=== PATIENT | male | born 1960 | race Caucasian/White ===

== ENCOUNTER → 2016-08-25 | Outpatient (CLI) | payer OTHER ==
--- NOTE | 2016-08-25 14:09 | MR ---
EXAMINATION TYPE: MR hip RT wo con DATE OF EXAM: 08/25/2016 COMPARISON: NONE HISTORY: Right hip pain Standard multiplanar, multisequence MRI departmental protocol Multiplanar MultiSpin echo imaging of the right hip was performed. FINDINGS: Bone marrow signal is homogeneous without evidence for fracture, bone lesion or avascular necrosis. There is attenuation of the subarticular cartilage compatible with osteoarthritis. Labrum is intact. Tiny amount of physiologic fluid identified. No intramuscular hematoma or mass. No pelvic mass is identified. IMPRESSION: 1. Mild changes of osteoarthritis of the right hip.
== END | disposition home or self-care (01) ==
LOC: RADMRIMAIN 12:41
PROVIDERS: ATTEND Internal Medicine Hematology & Oncology
DX: M16.11 Unilateral primary osteoarthritis, right hip (principal)

== ENCOUNTER → 2017-01-31 | Outpatient (CLI) | payer OTHER ==
--- NOTE | 2017-01-31 12:23 | CONS ---
CONSULTATION DATE OF SERVICE: 01/31/2017 A 56-year-old gentleman has been evaluated in the sleep center for possible obstructive sleep apnea-hypopnea syndrome. HISTORY OF PRESENT ILLNESS/SLEEP WAKE EVALUATION: SLEEP SCHEDULE: The patient's usual sleep schedule start from 10 p.m. and then he has very loud snoring and then he wakes up around 3:00 am and cannot sleep any longer at that time. At that time he also has nocturia. FALLING ASLEEP: No problem with falling asleep at night. No TV in bedroom. DURING SLEEP: He sleeps on the side position. Occasionally according to his , has episodes of stopped breathing. DURING THE DAY/SLEEP WAKE EVALUATION: In the morning he wakes up tired. [place] Sleepiness Scale is 9. PAST MEDICAL HISTORY: Positive for coronary artery disease, hyperlipidemia, endocrine CA in right inguinal area with spreading to the chest, treated with chemotherapy with positive results and resolving of the tumor, right hip osteoarthritis. PAST SURGICAL HISTORY: Status post insertion in the right side of the chest for stent insertions to coronary arteries and biopsy of the tumor. MEDICATIONS: Clopidogrel, rivaroxaban, metoprolol, Temazepam, zolpidem, tramadol, simvastatin, some supplements, vitamin D and also QVAR. SOCIAL HISTORY: Positive history of smoking for about 5 years up to 2 packs a day about 10 pack years, quit in 1984. Alcohol consumption one beer per night. FAMILY HISTORY: Hypertension, diabetes. REVIEW OF SYSTEMS: Awakenings from sleep and the patient cannot fall asleep again. Snoring, witnessed episodes of stopped breathing, pain in right hip. PHYSICAL EXAM: gentleman without distress, BP 142/83, HR 79, RR 16, height 6 foot 0, weight 248.3, BMI 33.6. Neck is 17 and a half inches in circumference. Temperature 97.7, oxygen saturation room air 94%. Oropharynx moderately low position of soft palate. Big uvula. There is some restriction of the nasal breathing. Chest port on the left side of the chest, abdomen slightly obese. Neck Supple, no JVD. Thyroid is not palpable. LUNGS Clear to percussion and to auscultation. Good air exchange. No wheezing or rhonchi. HEART S1, S2 regular. No murmurs, gallops, or rubs. ABDOMEN : Obese. Soft and nontender. Bowel sounds are present. No organomegaly appreciated. EXTREMITIES No clubbing or cyanosis. CREDIT ASSESSMENT ANALYST Awake, alert, and oriented X3. Cranial nerves 2 to 7 intact. There is no fasciculation or atrophy. noted. No focal deficits observed. The patient walks with a cane because of pain in the right hip. IMPRESSION: 1. Snoring, witnessed episodes of stopped breathing during the sleep. The patient sleeps sometimes with open mouth, moderately low soft palate and big uvula. Obstructive sleep apnea-hypopnea syndrome. 2. Mild obesity BMI 33.6. 3. History of endocrine cancer in right inguinal area with the distribution to the chest, treated with chemotherapy, presently in remission. 4. Coronary artery disease. Status post heart attack, status post 4 stent insertions. 5. Hyperlipidemia. 6. Right hip osteoarthritis. 7. Status post insertion to the left side of the chest for chemotherapy. PLAN: 1. Polysomnography for evaluation of patient's breathing during sleep. 2. CPAP/BiPAP titration if sleep study confirms obstructive sleep apnea-hypopnea syndrome. 3. Preferable position during sleep on the side. 4. No driving if patient feels any sleepiness. Patient is aware of civil and criminal liability for unsafe driving. 5. I will see patient for follow up visit to explain results of testing and following plan. Thank you very much for this patient for consultation. Sincerely, Cortes Matthews MD, PhD, FAASM Diplomat of [employer] [facility] [place] MMODL / GERMAINN: [id number] /
== END ==
LOC: SLEEP 10:13
PROVIDERS: ATTEND Internal Medicine
DX: G47.33 Obstructive sleep apnea (adult) (pediatric) (principal); E66.9 Obesity, unspecified; I25.10 Atherosclerotic heart disease of native coronary artery without angina pectoris; E78.5 Hyperlipidemia, unspecified; Z16.11 Resistance to penicillins; Z68.33 Body mass index [BMI] 33.0-33.9, adult; Z87.891 Personal history of nicotine dependence; Z79.899 Other long term (current) drug therapy; Z79.84 Long term (current) use of oral hypoglycemic drugs
CPT/HCPCS: 99211

== ENCOUNTER → 2017-03-15 | Outpatient (CLI) | payer OTHER ==
--- NOTE | 2017-03-15 13:16 | CT ---
EXAMINATION TYPE: CT ChestAbdPelvis w con DATE OF EXAM: 03/15/2017 COMPARISON: PET/CT August 26, 2016 HISTORY: Malignant neuroendocrine tumor of Rt groin. Had excisional surgery December 2014 and complete d chemotherapy December 2015. CT DLP: 2246 mGycm. Automated Exposure Control for Dose Reduction was Utilized. CONTRAST: CT scan of the thorax, abdomen and pelvis is performed with oral and with IV Contrast, patient inject ed with 100 mL of Omnipaque 300. FINDINGS: LUNGS: The lungs are grossly clear, there is no concerning greater than 4 mm noncalcified parenchymal mass or nodule identified. There is no pleural effusion or pneumothorax seen. The tracheobronchia l tree is patent. MEDIASTINUM: There are no greater than 1 cm hilar or mediastinal lymph nodes. No pericardial effusi on is seen. There is severe coronary artery calcification which is noted marker for coronary artery disease. OTHER: There is stable right internal jugular Mediport catheter with tip in SVC. LIVER/GB: Stone filled gallbladder is redemonstrated. Liver is diffusely low dense consistent with fa tty infiltration PANCREAS: No significant abnormality is seen. SPLEEN: No significant abnormality is seen. ADRENALS: No significant abnormality is seen. KIDNEYS: No significant abnormality is seen. BOWEL: Normal-appearing appendix from cecum in the right lower quadrant is incidentally seen.. GENITAL ORGANS: Prostate gland is mildly enlarged bulging on bladder base, underlying BPH is suspecte d, correlate clinically. LYMPH NODES: There is new 3.8 x 2.9 cm oval well-circumscribed lesion in the right pelvis with Hounsf ield units averaging or 50.. OSSEOUS STRUCTURES: Spine is straightened. Mild multilevel anterior spurring is seen. OTHER: There are surgical clips and scar in the right groin redemonstrated. Just superior to this wit hin the right pelvis there is irregular soft tissue near the iliac vessels on axial image 115. IMPRESSION: There is suspected neoplastic recurrence with lower right pelvic mass or groin adenopathy now identified and new more irregular soft tissue seen anterior to this at rectus sheath level.
== END | disposition home or self-care (01) ==
LOC: RADCTMAIN 10:20
PROVIDERS: ATTEND Internal Medicine Hematology & Oncology
DX: C7A.8 Other malignant neuroendocrine tumors (principal); M79.89 Other specified soft tissue disorders
CPT/HCPCS: 71260; 74177; Q9967

== ENCOUNTER 2017-03-29 07:52 | Day surgery (SDC) | payer OTHER ==
--- NOTE | 2017-03-29 11:12 | US ---
ULTRASOUND GUIDED FNA RIGHT GROIN MASS BIOPSY: CLINICAL HISTORY: Right groin mass FINDINGS: The procedure was explained to the patient. The risks, complications, benefits and alternatives were discussed and any questions were answered. Informed consent was obtained. Patient was placed supin e on the ultrasound table and prepped and draped in the usual sterile fashion. Utilizing a 25 gauge needle, three passes were made into the right groin mass. Patient was stable throughout the procedure. Pathology is pending. All elements of maximal barrier and sterile technique were utilized. IMPRESSION: 1. Successful ultrasound guided FNA right groin mass biopsy.
[2017-03-29 16:30] VITALS: BP 134/71; PULSE 96; RESP 20; TEMP 97.9
== END 2017-03-29 10:30 | disposition home or self-care (01) ==
LOC: RADPROMAIN 07:52
PROVIDERS: ATTEND Internal Medicine Hematology & Oncology
DX: C7A.1 Malignant poorly differentiated neuroendocrine tumors (principal)
CPT/HCPCS: 10022; 76942; 88173; 88305; 88341; 88342

== ENCOUNTER → 2017-07-17 | Outpatient (CLI) | payer OTHER ==
--- NOTE | 2017-07-17 14:00 | CT ---
EXAMINATION TYPE: CT abdomen pelvis w con DATE OF EXAM: 07/17/2017 COMPARISON: CT chest abdomen and pelvis March 15, 2017. PET CT August 26, 2016 HISTORY: Malignant neuroendocrine tumor right groin. On chemotherapy currently. CT DLP: 2034.8 mGycm, Automated Exposure Control for Dose Reduction was Utilized. CONTRAST: CT scan of the abdomen and pelvis is performed with oral and with IV Contrast, patient injected with 100 mL of Isovue 300. FINDINGS: LUNG BASES: No significant abnormality is appreciated. LIVER/GB: Visualized liver remains heterogeneously hypodense suggesting fatty infiltration. There is stone filled contracted gallbladder redemonstrated without surrounding inflammatory change. PANCREAS: No significant abnormality is seen. SPLEEN: No significant abnormality is seen. ADRENALS: No significant abnormality is seen. KIDNEYS: There is accessory right renal artery redemonstrated. BOWEL: Oral contrast reaches level of cecum. There is no suspicious small or large bowel dilatation. PROSTATE/SEMINAL VESICLES: No gross abnormality seen. LYMPH NODES: There is interval improvement in right external iliac chain mass or lymph node measuring 1.8 x 1.1 cm axial image 76 is 3.9 x 2.9 cm prior study. There is stable irregular soft tissue at le prabhu of right groin vessels anterior and lateral to this. No new greater than 1cm abdominal or pelvic lymph nodes are appreciated. OSSEOUS STRUCTURES: Mild multilevel spurring in the visualized spine is seen. Moderate joint space lo ss in both hips is present. OTHER: There are surgical clips in the right groin region redemonstrated. There is redemonstration of subcentimeter lymph node medial and inferior to clips axial image 85 unchanged from prior study. IMPRESSION: Positive response to treatment with diminished size in the right external iliac chain mas s or adenopathy. No new suspicious mass or adenopathy is seen.
== END | disposition home or self-care (01) ==
LOC: RADCTMAIN 10:48
PROVIDERS: ATTEND Internal Medicine Hematology & Oncology
DX: C7A.8 Other malignant neuroendocrine tumors (principal)
CPT/HCPCS: 82565; 84520; 74177; 36415; Q9967

== ENCOUNTER → 2017-08-29 | Outpatient (CLI) | payer OTHER ==
[2017-08-29 12:43] LABS: Blood Urea Nitrogen 19 mg/dL (9-20)
--- NOTE | 2017-08-29 17:14 | CT ---
EXAMINATION TYPE: CT abdomen pelvis w con DATE OF EXAM: 08/29/2017 COMPARISON: NONE HISTORY: Malignant neuro endo tumor CT DLP: 2017.1 mGycm Automated exposure control for dose reduction was used. TECHNIQUE: Helical acquisition of images was performed from the lung bases through the pelvis. CONTRAST: Performed with Oral Contrast and with IV Contrast, patient injected with 100 mL of Isovue 300. FINDINGS: LUNG BASES: Punctate 1 to 2 mm right basilar pulmonary nodule on series 6 image 23 is similar to the prior. Otherwise lung bases are unremarkable. LIVER/GB: Benign granuloma is seen of the hepatic parenchyma adjacent to a focal area of hypoattenuat ion that may represent more focal fatty infiltration. There is background mild hepatic steatosis as s een on the prior exam. No new hepatic lesions are seen. Contracted gallbladder contains numerous gall stones with no pericholecystic fat stranding. PANCREAS: No significant abnormality is seen. SPLEEN: No significant abnormality is seen. Splenomegaly. ADRENALS: No nodularity or thickening. KIDNEYS: Accessory renal artery is again noted. Nonspecific perinephric fat stranding is mild. No hyd ronephrosis. Kidneys enhance symmetrically. FREE AIR: No free air is visualized. ADENOPATHY: Again there is soft tissue density seen along the right inguinal canal and superficial in guinal region with surgical clips in the superficial inguinal region. Soft tissue density abuts the e xternal iliac artery and vein and appears similar in thickness to the prior exam of 07/17/2017. Howeve r the right external chain iliac adenopathy has decreased in size on series 5 image 80 measuring appr oximately 0.6 x 1.7 cm and previously measuring 1.1 x 1.8 cm. No new adenopathy is seen within the ab domen or pelvis. No greater than 1 cm short axis lymph nodes within the abdomen or pelvis. REPRODUCTIVE ORGANS: No significant abnormality is seen URINARY BLADDER: No significant abnormality is seen. OSSEOUS STRUCTURES: Mild multilevel degenerative change of the spine is again seen in addition to mo derate femoral acetabular arthropathy. BOWEL: Bowel is nondilated. Appendix is air-filled and within normal limits. IMPRESSION: CONTINUED RESPONSE TO TREATMENT WITH CONTINUED DECREASE IN SIZE OF THE RIGHT EXTERNAL ILIAC LYMPH NOD E PREVIOUSLY MEASURING 1.1 X 1.8 CM AND NOW MEASURING 0.6 X 1.7 CM. PERSISTENT SOFT TISSUE DENSITY AT THE POSTOPERATIVE SITE IN THE INGUINAL CANAL AND SUPERFICIAL INGUINAL REGION IS SIMILAR TO THE PRIOR AND COULD REPRESENT FIBROSIS. NO NEW EVIDENCE OF INTRA-ABDOMINAL OR PELVIC METASTASIS.
== END | disposition home or self-care (01) ==
LOC: RADCTMAIN 12:05
PROVIDERS: ATTEND Internal Medicine Hematology & Oncology
DX: C7A.8 Other malignant neuroendocrine tumors (principal); Z98.890 Other specified postprocedural states
CPT/HCPCS: 82565; 84520; 74177; 36415; Q9967

== ENCOUNTER 2017-09-17 06:24 | Day surgery (SDC) | payer OTHER ==
[2017-09-12 12:11] VITALS: BMI 33.9
[~2017-09-17 06:24] MED LIST: ALPRAZolam 0.25 MG TAB PO PRN; ALPRAZolam 0.5 MG TAB PO PRN; ASPIRIN 325 MG TAB PO STA; ATORVASTATIN 80 MG TAB PO STA; NITROGLYCERIN SL TABS 0.4 MG TAB SUBLINGUAL PRN; SODIUM CHLORIDE 0.9% 1,000 ML in EMPTY BAG 1 BAG IV ONE
[2017-09-17 07:19] VITALS: PULSE 83; RESP 20
[2017-09-17] MEDS ORDERED: VERAPAMIL 2.5 MG/ML 2 ML AMP ONE (07:21)
[2017-09-17 07:25] LABS: Anisocytosis Slight; Basophils % (A) 0 %; Eosinophils # (A) 0.1 k/uL (0-0.7); Eosinophils % (A) 2 %; HCT 37.9 % (39.0-53.0); HGB 12.6 gm/dL (13.0-17.5); Lymphocytes # (A) 0.6 k/uL (1.0-4.8); Lymphocytes % (A) 13 %; MCH 33.2 pg (25.0-35.0); MCHC 33.3 g/dL (31.0-37.0); MCV 99.9 fL (80.0-100.0); Macrocytosis Slight; Mean Platelet Volume 6.6; Monocytes # (A) 0.5 k/uL (0-1.0); Monocytes % (A) 11 %; Neutrophils # (A) 3.3 k/uL (1.3-7.7); Neutrophils % (A) 71 %; Platelet Count 392 k/uL (150-450); RBC 3.79 m/uL (4.30-5.90); RDW 16.6 % (11.5-15.5); WBC 4.7 k/uL (3.8-10.6)
[2017-09-17] MEDS ORDERED: MIDAZOLAM 2 MG/2 ML VIAL ONE (07:36)
[2017-09-17] MEDS: MIDAZOLAM 2 MG/2 ML VIAL IVP ONE ×2 (07:50→08:16)
[2017-09-17] MEDS ORDERED: LIDOCAINE 2% SYG (PF) 100 MG/5 ML MISCELLANE ONE (07:55)
[2017-09-17] MEDS: VERAPAMIL SYRINGE (5 MG/10 ML) INTRAARTER ONE ×2 (07:57→08:30)
[2017-09-17] MEDS ORDERED: HEPARIN SODIUM 1,000 UN/ML (10ML VL) ONE (07:57)
[2017-09-17] MEDS ORDERED: HEPARIN SODIUM 1,000 UN/ML (10ML VL) IV ONE (07:58)
[2017-09-17] MEDS ORDERED: IV FLUID CONTINUATION 950 ML IV ONE (08:01)
[2017-09-17] MEDS ORDERED: ADENOSINE 90 MG in SODIUM CHLORIDE 0.9% 60 ML IVP ONE (08:26)
[2017-09-17] MEDS ORDERED: IOPAMIDOL-370 125ML BTL INJ ONE (08:30)
[2017-09-17] MEDS ORDERED: RX INFO: IV CONTRAST WAS GIVEN 1 EACH MISC MISCELLANE PRN (08:44)
[2017-09-17] MEDS ORDERED: SODIUM CHLORIDE 0.9% 1,000 ML IV SCH (08:45)
[2017-09-17 09:11] LABS: Anion Gap 11 mmol/L; Blood Urea Nitrogen 17 mg/dL (9-20); Calcium 8.5 mg/dL (8.4-10.2); Carbon Dioxide 21 mmol/L (22-30); Chloride 105 mmol/L (98-107); Glucose 92 mg/dL (74-99); Potassium 3.8 mmol/L (3.5-5.1); Sodium 137 mmol/L (137-145)
--- NOTE | 2017-09-17 10:23 | CC ---
CARDIAC CATHETERIZATION REPORT DATE OF SERVICE: 09/17/2017 PERFORMING PHYSICIAN: Brannon Villalta MD, Dietary Director. PROCEDURE PERFORMED: 1. Selective right and left coronary angiogram. 2. Left heart catheterization. 3. Fractional flow reserve, FFR of the LAD. INDICATION: This is a pleasant 56-year-old gentleman who is known to have coronary artery disease and prior coronary artery stenting of the LAD as well as hypertension and dyslipidemia and also does have neuroendocrine carcinoma, was experiencing intermittent episodes of chest discomfort concerning for angina. Because of that, heart catheterization was recommended. APPROACH: Right radial artery. COMPLICATION: None. LEVEL OF SEDATION: Moderate with sedation length of 58 minutes. PROCEDURE DESCRIPTION: After obtaining an informed consent, the patient was brought to the cardiac labor law professor. The right radial artery was cannulated using micropuncture technique, the micropuncture wire passed easily, then I put a 6-Niuean sheath in the right radial artery. Subsequently, I gave the patient 10,000 units of heparin IV and 2 mg of verapamil IA. Selective right and left coronary angiogram was performed using JR4 and JL3.5 catheters. Left heart catheterization was performed using the JL4 catheter which flipped into the LV, then I did pullback across aortic valve. After that, I did an FFR of the LAD. Please see a separate paragraph for that. SELECTIVE CORONARY ANGIOGRAM: 1. The RCA is a large caliber vessel and it is a dominant vessel. The RCA is angiographically normal. It distally bifurcates into PDA and PLV branches both are angiographically normal. 2. The left main is a large caliber vessel. It bifurcates into left circumflex, ramus intermedius, and left anterior descending artery. 3. The left circumflex is a large caliber vessel. It is a nondominant vessel. The ostial circumflex is diseased in the range of 50%. The mid and distal circumflex are angiographically normal. 4. The ramus intermedius is a large caliber vessel and seems to be angiographically normal. 5. The ostial LAD right after the bifurcation from the left main has a lesion, appeared to be in the range of 60% to 70%. we did an FFR on it and IFR came in to be 0.60, which is ischemic. The mid LAD is stented and the stent is patent. The distal LAD appears to be angiographically normal. HEMODYNAMICS: The left ventricular end-diastolic pressure was 14 mmHg and no gradient was identified across the aortic valve. IFR of the LAD anticoagulation was initiated using heparin and the patient was given 10,000 units of heparin IV. Subsequently, I did after zeroing the Doppler wire and equalizing between the Doppler wire and the guiding catheter which was JL3.5 guiding catheter, we did an IFR without IV adenosine infusion and the IFR came in to be 0.60 which is ischemic. CONCLUSION: 1. Normal right coronary artery which is a large and dominant vessel. 2. Mild disease involving the left main coronary artery. 3. Intermediate disease involving the ostial left circumflex. 4. Normal ramus intermedius coronary artery. 5. Severe disease involving the ostial left anterior descending artery with patent stent in the mid left anterior descending artery. POSTPROCEDURE MANAGEMENT: 1. I will discuss with the patient and his family the need for 1 single-vessel CHANDLER to LAD. Unless the patient's prognosis is poor, in terms of the endocrine tumor, I will consider doing a PCI of the LAD. I will discuss that with his oncologist as well as with his primary care physician and as well as with the patient and the patient's family. MMODL / IJN: [id number] /
--- NOTE | 2017-09-17 10:38 | LTR ---
DATE OF SERVICE: September 17, [address] Carl: Mr. Warren Sargent underwent heart catheterization and that revealed severe disease involving the ostial LAD. I am going to discuss with the patient the option between single-vessel bypass with CHANDLER to LAD versus percutaneous coronary intervention. I want to thank you for allowing me to participate in his care and please do not hesitate to call if you have any questions or concern. Sincerely, HAO / GERMAINN: [id number] /
[2017-09-17 17:10] VITALS: BP 114/77
== END 2017-09-17 14:20 | disposition home or self-care (01) ==
LOC: CATHCVL 06:24
PROVIDERS: ATTEND Internal Medicine Interventional Cardiology
DX: I25.110 Atherosclerotic heart disease of native coronary artery with unstable angina pectoris (principal); I10 Essential (primary) hypertension; E78.5 Hyperlipidemia, unspecified; E78.00 Pure hypercholesterolemia, unspecified; C7A.8 Other malignant neuroendocrine tumors; Z79.01 Long term (current) use of anticoagulants; Z79.899 Other long term (current) drug therapy; Z95.5 Presence of coronary angioplasty implant and graft; Z82.49 Family history of ischemic heart disease and other diseases of the circulatory system
CPT/HCPCS: 93571; 93458; 80048; 85025; C1887; C1894; J2250; J2001; J1644; Q9967

== ENCOUNTER 2017-09-28 10:18 | Day surgery (SDC) | payer OTHER ==
[2017-09-24 15:40] VITALS: BMI 33.9
[2017-09-28 11:05] LABS: Anion Gap 13 mmol/L; Blood Urea Nitrogen 19 mg/dL (9-20); Calcium 8.9 mg/dL (8.4-10.2); Carbon Dioxide 20 mmol/L (22-30); Chloride 107 mmol/L (98-107); Glucose 83 mg/dL (74-99); Potassium 4.1 mmol/L (3.5-5.1); Sodium 140 mmol/L (137-145)
[2017-09-28 11:27] LABS: Basophils % (A) 1 %; Eosinophils # (A) 0.1 k/uL (0-0.7); Eosinophils % (A) 3 %; HCT 36.1 % (39.0-53.0); HGB 12.4 gm/dL (13.0-17.5); Lymphocytes # (A) 0.5 k/uL (1.0-4.8); Lymphocytes % (A) 15 %; MCH 33.2 pg (25.0-35.0); MCHC 34.5 g/dL (31.0-37.0); MCV 96.3 fL (80.0-100.0); Mean Platelet Volume 6.6; Monocytes # (A) 0.4 k/uL (0-1.0); Monocytes % (A) 12 %; Neutrophils # (A) 2.2 k/uL (1.3-7.7); Neutrophils % (A) 68 %; Platelet Count 317 k/uL (150-450); RBC 3.75 m/uL (4.30-5.90); RDW 14.6 % (11.5-15.5); WBC 3.3 k/uL (3.8-10.6)
[2017-09-28] MEDS ORDERED: MIDAZOLAM 2 MG/2 ML VIAL IV ONE (11:30)
[2017-09-28] MEDS: VERAPAMIL SYRINGE (5 MG/10 ML) INTRAARTER ONE ×2 (11:33→11:57)
[2017-09-28] MEDS ORDERED: LIDOCAINE 1% (PF) 10MG/ML VIAL SQ ONE (11:33)
[2017-09-28] MEDS ORDERED: BIVALIRUDIN 250 MG in SODIUM CHLORIDE 0.9% 50 ML IV ONE (11:36)
[2017-09-28] MEDS ORDERED: BIVALIRUDIN BOLUS 250 MG/50 ML IV ONE (11:36)
[2017-09-28] MEDS ORDERED: NITROGLYCERIN 1000MCG/10ML SYRINGE INTRACORON ONE (11:43)
[2017-09-28] MEDS ORDERED: IOPAMIDOL-370 125ML BTL INJ ONE (11:56)
[2017-09-28] MEDS ORDERED: CLOPIDOGREL 75 MG TAB PO ONE (11:56)
[2017-09-28] MEDS ORDERED: ZOLPIDEM 5 MG TAB PO PRN (12:02)
[2017-09-28] MEDS ORDERED: NITROGLYCERIN SL TABS 0.4 MG TAB SUBLINGUAL PRN (12:02)
[2017-09-28] MEDS ORDERED: MAG HYDROX/AL HYDROX/SIMETH 30 ML CUP PO PRN (12:02)
[2017-09-28] MEDS ORDERED: RX INFO: IV CONTRAST WAS GIVEN 1 EACH MISC MISCELLANE PRN (12:02)
[2017-09-28] MEDS ORDERED: ATROPINE SULFATE 0.1 MG/ML 10ML SYRINGE IV PRN (12:02)
[2017-09-28] MEDS ORDERED: SODIUM CHLORIDE 0.9% 1,000 ML IV SCH (12:15)
--- NOTE | 2017-09-28 13:41 | PTCA ---
PERCUTANEOUSTRANS CORORONARY ANGIOGRAPHY PERCUTANEOUS CORONARY INTERVENTION: DATE OF SERVICE: 09/28/2017 PERFORMING PHYSICIAN: Brannon Villalta MD, activity manager. PROCEDURE PERFORMED: Successful stenting of the ostial/proximal LAD using a 3.0 x 8 mm Xience SUMIT with good angiographic results. INDICATION: This is a pleasant 56-year-old gentleman with known history of coronary artery disease and prior stenting of the proximal LAD, was experiencing chest discomfort and underwent heart catheterization recently and that showed severe disease involving ostial/proximal portion. The patient is not a candidate to have open heart surgery with his comorbidities including cancer. Because of that, PCI was advised. APPROACH: Right radial artery. COMPLICATION: None. LEVEL OF SEDATION: Moderate with sedation length of 26 minutes. PROCEDURE DESCRIPTION: After obtaining an informed consent, the patient was brought to the cardiac solar lab technician. The right radial artery was cannulated using micropuncture technique, the micropuncture wire passed easily then I placed a 6-Irish sheath in the right radial artery. After that I gave the patient 2 mg of verapamil IA. Subsequently anticoagulation was initiated using Angiomax and the patient was given the bolus and drip per protocol. I did engage the left main using JL3.5 guide. A whisper wire was used to wire the LAD and the run-through wire was used to wire the ramus intermedius. After that I did successful stenting, which was direct stent on the ostial proximal LAD using 3.0 x 8 mm Xience SUMIT where the stent was positioned under fluoroscopy guidance and deployed under 14 atmospheres for 20 seconds with the following angiogram showed good angiographic results without perforation, without dissection, with AARON-3 flow and without any pinch on the ramus intermedius. CONCLUSION: Successful stenting of the ostial/proximal left anterior descending artery using 3.0 x 8 mm Xience SUMIT with good angiographic results. POSTPROCEDURE MANAGEMENT: 1. Dual antiplatelet therapy. 2. Risk factors modifications. 3. Follow up with the patient. MMODL / IJN: [id number] /
--- NOTE | 2017-09-28 13:56 | LTR ---
DATE OF SERVICE: September 28, 2017 RE: Warren Sargent Dear Dr. Carl; Mr. Warren Sargent underwent successful stenting of the ostial/proximal LAD using 3.0 x 8 mm Xience SUMIT with good angiographic results. I want to thank you for allowing me to participate in his care and please do not hesitate to call if you have any question or concern. Sincerely, MD HAO Chung / RALPH: [id number] /
[2017-09-28] MEDS: BUDESONIDE 0.5 MG/2 ML NEBU INHALATION SCH (20:14)
[2017-09-28] MEDS ORDERED: TAMSULOSIN 0.4 MG CAP.ER.24H PO SCH (21:00)
[2017-09-29 08:09] VITALS: BP 120/77; RESP 16; TEMP 96.7
[2017-09-29] MEDS: BUDESONIDE 0.5 MG/2 ML NEBU INHALATION SCH (08:47)
[2017-09-29 08:56] VITALS: PULSE 68
[2017-09-29] MEDS ORDERED: LOSARTAN 25 MG TAB PO SCH (09:00)
[2017-09-29] MEDS ORDERED: CLOPIDOGREL 75 MG TAB PO SCH (09:00)
[2017-09-29] MEDS ORDERED: ISOSORBIDE MONONITRATE ER 30 MG TAB.ER.24H PO SCH (09:00)
[2017-09-29] MEDS ORDERED: ASPIRIN 325 MG TAB PO SCH (09:00)
[2017-09-29] MEDS ORDERED: CHOLECALCIFEROL 1,000 UNIT TAB PO SCH (09:00)
[2017-09-29] MEDS ORDERED: METOPROLOL SUCCINATE (ER) 25 MG TAB.ER.24H PO SCH (09:00)
--- NOTE | 2017-09-29 09:14 | P.DS ---
Providers Date of admission: September 282017 Attending physician: Brannon Villalta Consults: 09/28/17 12:02 Consult Physician Routine Consulting Provider: [facility] Consult Reason/Comments: Post Interventional patient Do you want consulting provider notified?: Already Contacted Primary care physician: Stated None Hospital Course: This is a pleasant 56-year-old gentleman who was admitted to the hospital yesterday and underwent successful stenting of the ostial/proximal LAD with a good angiographic results and without any complication from the procedure was performed from the right arm. He denies having any chest pain or discomfort or shortness of breath or dizziness or lightheadedness. He is going to be discharged home on dual antiplatelet therapy along with Xarelto which I am going to lower the dose to 50 mg by mouth daily. Plan - Discharge Summary Discharge Rx Participant: Yes New Discharge Prescriptions: New Aspirin 81 mg PO DAILY #90 tab Atorvastatin Calcium [Lipitor] 40 mg PO DAILY #90 tablet Clopidogrel [Plavix] 75 mg PO DAILY #90 tab Continue Metoprolol Succinate (ER) [Toprol XL] 25 mg PO QAM Cholecalciferol [Vitamin D3] 1,000 unit PO QAM Telmisartan [Micardis] 10 mg PO QAM Tamsulosin HCl [Flomax] 0.4 mg PO HS Fluticasone Propionate [Flovent Hfa 110mcg] 2 puff INHALATION BID Albuterol Sulfate [Proair Hfa] 1 - 2 puff INHALATION Q6HR PRN PRN Reason: Shortness Of Breath Isosorbide Mononitrate [Isosorbide Mononitrate ER] 30 mg PO DAILY Changed Rivaroxaban [Xarelto] 15 mg PO HS #0 Discharge Medication List Cholecalciferol [Vitamin D3] 1,000 unit PO QAM 03/22/17 [History] Metoprolol Succinate (ER) [Toprol XL] 25 mg PO QAM 03/22/17 [History] Tamsulosin HCl [Flomax] 0.4 mg PO HS 09/12/17 [History] Telmisartan [Micardis] 10 mg PO QAM 09/12/17 [History] Albuterol Sulfate [Proair Hfa] 1 - 2 puff INHALATION Q6HR PRN 09/28/17 [History] Fluticasone Propionate [Flovent Hfa 110mcg] 2 puff INHALATION BID 09/28/17 [ History] Isosorbide Mononitrate [Isosorbide Mononitrate ER] 30 mg PO DAILY 09/28/17 [ History] Aspirin 81 mg PO DAILY #90 tab 09/29/17 [Rx] Atorvastatin Calcium [Lipitor] 40 mg PO DAILY #90 tablet 09/29/17 [Rx] Clopidogrel [Plavix] 75 mg PO DAILY #90 tab 09/29/17 [Rx] Rivaroxaban [Xarelto] 15 mg PO HS #0 09/29/17 [Rx] Follow up Appointment(s)/Referral(s): Brannon Villalta MD [STAFF PHYSICIAN] - 1 Week
== END 2017-09-29 11:56 | disposition home or self-care (01) ==
LOC: CATHCVL 10:18 → 6SEL 12:55 → CATHCVL 09-29 11:56
PROVIDERS: ATTEND Internal Medicine Interventional Cardiology
DX: I25.10 Atherosclerotic heart disease of native coronary artery without angina pectoris (principal); I10 Essential (primary) hypertension; E78.5 Hyperlipidemia, unspecified; C7A.8 Other malignant neuroendocrine tumors; Z95.5 Presence of coronary angioplasty implant and graft; Z82.49 Family history of ischemic heart disease and other diseases of the circulatory system; F17.210 Nicotine dependence, cigarettes, uncomplicated; Z79.01 Long term (current) use of anticoagulants; Z79.51 Long term (current) use of inhaled steroids; Z79.899 Other long term (current) drug therapy
CPT/HCPCS: 94640 ×2; 94760; 80048; 82565; 85025; C9600; C1769 ×2; C1887; C1874; C1894; J2250; J0583; J2001; Q9967

== ENCOUNTER → 2017-10-27 | Outpatient (CLI) | payer OTHER ==
--- NOTE | 2017-10-27 10:13 | MR ---
EXAMINATION TYPE: MR brain wo/w con DATE OF EXAM: 10/27/2017 10:01 AM COMPARISON: NONE HISTORY: Memory loss. TECHNIQUE: Multiplanar, multiecho imaging of the brain was obtained with and without intravenous adm inistration of 11.5 mL intravenous Gadavist. FINDINGS: Midline structures are unremarkable. There is a normal craniocervical junction. Echoplanar diffusion imaging is unremarkable. There are normal vascular flow voids. The orbits are unremarkable. There is no evidence of a CP angle mass lesion. There are numerous small FLAIR lesions in the subcortical and deep white matter tracts of both cerebr al hemispheres. The largest is on the right measures 4.4 mm. There is no mass effect, midline shift o r intracranial blood. Following intravenous administration of gadolinium, I do not see evidence of abnormal enhancement. IMPRESSION: 1. NO ACUTE INTRACRANIAL ABNORMALITY AND NO EVIDENCE OF METASTATIC DISEASE AT THIS TIME. 2. MULTIPLE, SMALL FLAIR LESIONS THROUGHOUT BOTH CEREBRAL HEMISPHERES. A DIFFERENTIAL DIAGNOSIS INCLU SUMIT SMALL VESSEL DISEASE, DEMYELINATION, HYPERTENSION, MIGRAINE HEADACHES AND LYME'S DISEASE.
== END | disposition home or self-care (01) ==
LOC: RADMRIMAIN 09:09
PROVIDERS: ATTEND Radiology Radiation Oncology
DX: C7A.8 Other malignant neuroendocrine tumors (principal)
CPT/HCPCS: 70553; A9581

== ENCOUNTER → 2017-10-29 | Outpatient (CLI) | payer OTHER ==
--- NOTE | 2017-10-29 14:44 | CT ---
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 CT DLP: 1707 mGycm Automated exposure control for dose reduction was used. TECHNIQUE: Helical acquisition of images was performed from the lung bases through the pelvis. CONTRAST: Performed with Oral Contrast and with IV Contrast, patient injected with 100 ml mL of Isovue 300. FINDINGS: LUNG BASES: No significant abnormality is appreciated. LIVER/GB: Again there is a punctate calcification within the caudate lobe of the liver likely relatin g to a granuloma with adjacent to a focal area of hypoattenuation that may represent more focal fatty infiltration. This could alternatively represent very less likely treated metastasis. No arterial en hancing focus is seen to suggest new metastasis. There is again background mild hepatic steatosis. Th e gallbladder contains multiple layering gallstones. PANCREAS: No significant abnormality is seen. SPLEEN: No significant abnormality is seen. No splenomegaly. ADRENALS: Adrenal glands are symmetric without focal nodule. KIDNEYS: Kidneys enhance symmetrically without hydronephrosis or focal renal lesion. FREE AIR: No free air is visualized. ADENOPATHY: No greater than 1 cm short axis lymph node within the abdomen or pelvis. Postsurgical ch anges and scarring within the right superficial inguinal region with soft tissue density along the ri ght inguinal canal abutting the external iliac artery and vein is unchanged in comparison the prior l ikely representing fibrosis. Right external iliac chain lymph node is no longer enlarged (also not en larged on the prior)r again measuring approximately 6 mm in short axis on series 3 image 79. REPRODUCTIVE ORGANS: Prostate gland is mildly enlarged measuring 4.9 cm in transverse dimension. URINARY BLADDER: Urinary bladder is incompletely distended and therefore incompletely evaluated. Chr onic right lateral anterior urinary bladder wall thickening may relate to posttreatment change measur ing up to 5 mm. This may also partially relate to incomplete distention. OSSEOUS STRUCTURES: There is minimal multilevel degenerative change of the spine and left femoral st able sclerotic lesion on series 3 image 89, likely related to benign bone island. BOWEL: No large or small bowel dilatation. Contrast has not extended to the level of the colon there fore somewhat limiting evaluation. Appendix is air-filled and without periappendiceal fat stranding. OTHER: Mild calcific atheromatous changes are seen of the abdominal aorta and its branches. IMPRESSION: STABLE RIGHT INGUINAL CANAL SOFT TISSUE DENSITY, LIKELY RELATED TO TREATED DISEASE/FIBROSIS. NO NEW A DENOPATHY OR EVIDENCE OF METASTASIS WITHIN THE ABDOMEN OR PELVIS.
== END | disposition home or self-care (01) ==
LOC: RADCTMAIN 11:34
PROVIDERS: ATTEND Internal Medicine Hematology & Oncology
DX: R19.09 Other intra-abdominal and pelvic swelling, mass and lump (principal); C7A.8 Other malignant neuroendocrine tumors
CPT/HCPCS: 74177; Q9967

== ENCOUNTER → 2018-01-22 | Outpatient (CLI) | payer OTHER ==
--- NOTE | 2018-01-22 14:29 | CT ---
EXAMINATION TYPE: CT abdomen pelvis w con DATE OF EXAM: 01/22/2018 COMPARISON: October 29, 2017 HISTORY: Patient complains of known endocrine ca with right groin mass. CT DLP: 1611.1 mGycm CONTRAST: CT scan of the abdomen and pelvis is performed with Oral Contrast and with IV Contrast, patient injec carlos with 100 mL of Isovue 300. FINDINGS: LUNG BASES-: No visible nodule. No infiltrate. LIVER/GB: Calcified gallstones noted. Mild fatty liver identified. No space occupying hepatic lesi on. Biliary tree is of normal caliber. PANCREAS: No inflammation. No distinct mass. SPLEEN: No splenic enlargement. No lesion seen. ADRENALS: No nodule. No thickening. KIDNEYS/BLADDER: No hydronephrosis. No nephrolithiasis. No distinct renal mass. Urinary bladder g rossly unremarkable. BOWEL: Normal appendix. Normal bowel caliber. No inflammation. GENITAL ORGANS: No gross abnormality. LYMPH NODES: Right inguinal dissection. No greater than 1cm abdominal or pelvic lymph nodes are appre ciated. AORTA: No significant abnormality. OSSEOUS STRUCTURES: No significant abnormality is seen. OTHER: No significant additional abnormality is seen. IMPRESSION: 1. Fatty liver. 2. Cholelithiasis. 3. No evidence for adenopathy. Right inguinal dissection.
== END | disposition home or self-care (01) ==
LOC: RADCTMAIN 10:57
PROVIDERS: ATTEND Internal Medicine Hematology & Oncology
DX: K80.20 Calculus of gallbladder without cholecystitis without obstruction (principal); K76.0 Fatty (change of) liver, not elsewhere classified; C7A.8 Other malignant neuroendocrine tumors
CPT/HCPCS: 74177; Q9967

== ENCOUNTER → 2018-03-02 | Outpatient (CLI) | payer OTHER ==
--- NOTE | 2018-03-03 15:07 | PE ---
Nuclear medicine PET/CT HISTORY: Neuroendocrine tumor, subsequent Patient received 10.3 mCi F-18 FDG intravenously in delayed scanning performed from the skull base to the mid thighs. Localization and attenuation correction CT scan was performed. Correlation to prior CT abdomen pelvis 01/22/2018, prior nuclear medicine PET/CT 08/26/2016 Neck and chest: There is no evident cervical or supraclavicular adenopathy. No mediastinal, axillary, or hilar adenopathy, left hilar calcifications are stable no suspicious hypermetabolic uptake. No ev ident lung mass. Coronary artery calcifications are dense. Port-A-Cath is present in the right pector al region, catheter courses into the cavoatrial junction level. Abdomen pelvis: Calcifications stable within the liver. No retroperitoneal adenopathy or ascites, aor ta shows normal caliber. Dependent hyperdensity within the gallbladder compatible with stones as on p rior exam. No suspicious hypermetabolic uptake. No pelvic adenopathy. Postop changes are noted to the right groin. No free fluid. Osseous structures are stable. IMPRESSION: Stable exam. Recurrence is not evident. Additional findings above.
== END | disposition home or self-care (01) ==
LOC: RADPETMAIN 07:44
PROVIDERS: ATTEND Internal Medicine Hematology & Oncology
DX: C7A.8 Other malignant neuroendocrine tumors (principal)
CPT/HCPCS: 78815; A9552

== ENCOUNTER 2018-08-09 10:05 | Day surgery (SDC) | payer MEDICARE, OTHER ==
[2018-08-07 08:31] VITALS: BMI 33.9
[2018-08-09 10:28] VITALS: RESP 18; TEMP 98.2
[2018-08-09 10:46] LABS: Basophils % (A) 1 %; Eosinophils # (A) 0.1 k/uL (0-0.7); Eosinophils % (A) 2 %; HCT 45.9 % (39.0-53.0); HGB 15.4 gm/dL (13.0-17.5); Lymphocytes # (A) 0.7 k/uL (1.0-4.8); Lymphocytes % (A) 17 %; MCH 30.1 pg (25.0-35.0); MCHC 33.6 g/dL (31.0-37.0); MCV 89.7 fL (80.0-100.0); Mean Platelet Volume 6.4; Monocytes # (A) 0.3 k/uL (0-1.0); Monocytes % (A) 7 %; Neutrophils % (A) 71 %; Platelet Count 286 k/uL (150-450); RBC 5.12 m/uL (4.30-5.90); RDW 13.6 % (11.5-15.5); WBC 4.2 k/uL (3.8-10.6)
[2018-08-09 10:54] LABS: Anion Gap 5 mmol/L; Blood Urea Nitrogen 12 mg/dL (9-20); Calcium 9.5 mg/dL (8.4-10.2); Carbon Dioxide 27 mmol/L (22-30); Chloride 105 mmol/L (98-107); Glucose 85 mg/dL (74-99); Potassium 4.3 mmol/L (3.5-5.1); Sodium 137 mmol/L (137-145)
[2018-08-09] MEDS ORDERED: MIDAZOLAM (PF) 2 MG/2 ML VIAL IV ONE ×2 (12:44→12:53)
[2018-08-09] MEDS ORDERED: LIDOCAINE 2% (PF) 20 MG/ML 2 ML AMP SQ ONE (12:46)
[2018-08-09] MEDS: VERAPAMIL SYRINGE (5 MG/10 ML) INTRAARTER ONE ×2 (12:48→12:56)
[2018-08-09] MEDS ORDERED: HEPARIN SODIUM 1,000 UN/ML (10ML VL) IV ONE (12:49)
[2018-08-09] MEDS ORDERED: fentaNYL (PF) 50 MCG/ML 2 ML AMP IV ONE (12:53)
[2018-08-09] MEDS ORDERED: IOPAMIDOL-370 125ML BTL INJ ONE (12:57)
[2018-08-09] MEDS ORDERED: RX INFO: IV CONTRAST WAS GIVEN 1 EACH MISC MISCELLANE PRN (12:59)
[2018-08-09] MEDS ORDERED: SODIUM CHLORIDE 0.9% 1,000 ML IV SCH (13:00)
[2018-08-09 15:08] VITALS: BP 135/81; PULSE 77
--- NOTE | 2018-08-09 17:45 | CC ---
CARDIAC CATHETERIZATION REPORT DATE OF SERVICE: 08/09/2018 PERFORMING PHYSICIAN: Brannon Villalta MD, oil sales and service rep. PROCEDURES PERFORMED: 1. Selective right and left coronary angiogram. 2. Left heart catheterization. INDICATION: This is a 57-year-old gentleman with history of coronary artery disease and prior stenting of the LAD as well as hypertension and dyslipidemia who was experiencing symptoms of chest discomfort with exertion, concerning for angina. Because of that, a heart catheterization was advised. APPROACH: Right radial artery. COMPLICATIONS: None. LEVEL OF SEDATION: Moderate, with sedation length of 13 minutes. PROCEDURE DESCRIPTION: After obtaining informed consent, the patient was brought to the cardiac cath lab manager. The right radial artery was cannulated using micropuncture technique, and the micropuncture wire passed easily. Then I placed a 6-Iraqi sheath 11 cm in the right radial artery. Subsequently I did selective right and left coronary angiogram using JR4 and JL3.5 catheters. Left heart catheterization was performed using the JL4 across the aortic valve. This was pulled back across the aortic valve. The procedure was completed without any complication. FINDINGS: 1. The right coronary artery is a large-caliber vessel. It is a dominant vessel and appeared to have mild disease only. 2. The left main appeared to have mild disease only. It bifurcates into left circumflex, ramus intermedius and left anterior descending artery. 3. The left circumflex is a large-caliber vessel. It is a codominant vessel. The ostial circumflex appeared to have a lesion in the range of 50%. It seems to be unchanged compared to before. The mid and distal circumflex appeared to be angiographically normal. 4. The ramus intermedius appeared to have mild disease only in its ostium. 5. The LAD is stented in the ostium and the stent is patent. The mid LAD also is stented with mild in-stent restenosis. The LAD distally appeared to be angiographically normal. HEMODYNAMICS: The left ventricular end-diastolic pressure was about 20 to 24 mmHg without significant gradient across the aortic valve. CONCLUSION: 1. Intermediate disease involving the ostium of the left circumflex that appeared to be in the range of 50%. 2. Patent stent in the ostial and proximal left anterior descending artery. POST-PROCEDURE MANAGEMENT: 1. I did advise maximized medical treatment. 2. Follow up with the patient. MMODL / IJN: [id number] /
== END 2018-08-09 18:03 | disposition home or self-care (01) ==
LOC: CATHCVL 10:05
PROVIDERS: ATTEND Internal Medicine Interventional Cardiology
DX: I25.10 Atherosclerotic heart disease of native coronary artery without angina pectoris (principal); I10 Essential (primary) hypertension; E78.5 Hyperlipidemia, unspecified; T82.855A Stenosis of coronary artery stent, initial encounter; Y83.8 Other surgical procedures as the cause of abnormal reaction of the patient, or of later complication, without mention of misadventure at the time of the procedure; Z82.49 Family history of ischemic heart disease and other diseases of the circulatory system; F17.210 Nicotine dependence, cigarettes, uncomplicated; Z79.899 Other long term (current) drug therapy; Z79.02 Long term (current) use of antithrombotics/antiplatelets
CPT/HCPCS: 93458; 80048; 85025; C1769; C1894; J3010; J1644; J2001; Q9967; J2250

== ENCOUNTER → 2018-09-07 | Outpatient (CLI) | payer OTHER ==
--- NOTE | 2018-09-09 12:16 | PE ---
EXAMINATION TYPE: PET CT fusion skull to thigh DATE OF EXAM: 09/07/2018 COMPARISON: Prior PET/CT March 02, [address] August 26, 2016. Prior CT abdomen and pelvis January 22, 2018 and older CTs. HISTORY: Neuroendocrine tumors diagnosed on right inguinal mass completed radiation treatment in [place] and completed chemotherapy August 27. TECHNIQUE: Following the intravenous administration of 10.54 mCi of F-18 FDG, whole body images are performed from the skull base to the midthigh. Images are reviewed on the computer in the coronal, a xial, and sagittal planes. Reconstructed rotating images are created on independent workstation and reviewed on the computer. A noncontrast CT is performed in conjunction with the PET scan. SCAN: Subsequent Scan FINDINGS: SKULL BASE AND NECK: No new areas of suspicious hypermetabolic uptake. CHEST, MEDIASTINUM, AND HILAR REGION: No new areas of suspicious hypermetabolic uptake. ABDOMEN AND PELVIS: Surgical changes right groin region near axial image 233 redemonstrated with surg ical clips and scar tissue. No new areas of suspicious hypermetabolic uptake. OSSEOUS STRUCTURES: No new areas of suspicious hypermetabolic uptake. OTHER CT: Stable right internal jugular Mediport catheter. Stable moderate to severe coronary artery calcification and/or stent LAD and left circumflex including ramus intermedius. Liver is diffusely low dense consistent with fatty infiltration. Numerous small gallstones in contrac carlos gallbladder. Cortical thinning both kidneys consistent with product of chronic medical renal dise ase. Slightly enlarged prostate gland consistent with BPH. IMPRESSION: No new areas of suspicious hypermetabolic uptake to suggest malignant recurrence.
== END | disposition home or self-care (01) ==
LOC: RADPETMAIN 09:33
PROVIDERS: ATTEND Internal Medicine Hematology & Oncology
DX: C7A.8 Other malignant neuroendocrine tumors (principal); Z92.3 Personal history of irradiation; Z92.21 Personal history of antineoplastic chemotherapy
CPT/HCPCS: 78815; A9552

== ENCOUNTER → 2018-12-16 | Outpatient (CLI) | payer MEDICARE, OTHER ==
--- NOTE | 2018-12-16 10:02 | ECHOF ---
Referral Reason:R609 edema I25.10 heart disease MEASUREMENTS -------- HEIGHT: 180.3 cm WEIGHT: 108.9 kg BP: RVIDd: 2.7 cm (< 3.3) IVSd: 1.1 cm (0.6 - 1.1) LVIDd: 4.2 cm (3.9 - 5.3) LVPWd: 1.1 cm (0.6 - 1.1) IVSs: 1.4 cm LVIDs: 3.1 cm LVPWs: 1.5 cm LAESV Index (A-L): 18.01 ml/m Ao Diam: 3.4 cm (2.0 - 3.7) AV Cusp: 2.3 cm (1.5 - 2.6) LA Diam: 3.2 cm (2.7 - 3.8) MV EXCURSION: 14.577 mm (> 18.000) MV EF SLOPE: 85 mm/s (70 - 150) EPSS: 0.3 cm MV E Teddy: 0.79 m/s MV DecT: 234 ms MV A Teddy: 0.96 m/s MV E/A Ratio: 0.82 RAP: 5.00 mmHg RVSP: 20.98 mmHg TAPSE: 2.11 cm FINDINGS -------- Sinus rhythm. This was a technically good study. The left ventricular size is normal. There is borderline concentric left ventricular hypertrophy. Overall left ventricular systolic function is normal with, an EF between 55 - 60 %. The diastolic filling pattern is normal for the age of the patient 10.37. The right ventricle is normal in size. The right ventricular systolic function is normal. Normal LA size by volume 22+/-6 ml/m2. The right atrial size is normal. Interatrial and interventricular septum intact. The aortic valve is trileaflet, and appears structurally normal. No aortic stenosis or regurgitation. The mitral valve is normal. There is trace to mild mitral regurgitation. The tricuspid valve appears structurally normal. Trace tricuspid regurgitation present. Right winston tricular systolic pressure is normal at < 35 mmHg. There is no pulmonic regurgitation present. The aortic root size is normal. Normal inferior vena cava with normal inspiratory collapse consistent with estimated right atrial pre ssure of 5 mmHg. All pulmonary veins appear normal. The flow patterns, measured by Doppler, appear normal. There is no pericardial effusion. CONCLUSIONS -------- 1. Sinus rhythm. 2. This was a technically good study. 3. The left ventricular size is normal. 4. There is borderline concentric left ventricular hypertrophy. 5. Overall left ventricular systolic function is normal with, an EF between 55 - 60 %. 6. The diastolic filling pattern is normal for the age of the patient 10.37 7. Normal LA size by volume 22+/-6 ml/m2. 8. The aortic valve is trileaflet, and appears structurally normal. No aortic stenosis or regurgitati on. 9. The mitral valve is normal. 10. There is trace to mild mitral regurgitation. 11. The tricuspid valve appears structurally normal. 12. Trace tricuspid regurgitation present. 13. Right ventricular systolic pressure is normal at < 35 mmHg. 14. There is no pulmonic regurgitation present. 15. The aortic root size is normal. 16. Normal inferior vena cava with normal inspiratory collapse consistent with estimated right atrial pressure of 5 mmHg. 17. All pulmonary veins appear normal. 18. The flow patterns, measured by Doppler, appear normal. 19. There is no pericardial effusion. [employer]: Jenny Be RDCS
--- NOTE | 2018-12-16 11:23 | US ---
EXAMINATION TYPE: US renals and bladder DATE OF EXAM: 12/16/2018 COMPARISON: PET CT 09/07/2018 CLINICAL HISTORY: 58-year-old male I25.10 heart disease, R609 edema. TECHNIQUE: Multiple sonographic images of the kidneys and bladder are obtained. FINDINGS: EXAM MEASUREMENTS: Right Kidney: 11.5 x 5.5 x 5.9 cm Left Kidney: 11.9 x 6.3 x 5.2 cm No hydronephrosis on either side. Bladder: wnl Bilateral Jets seen: no Normal caliber aorta IMPRESSION: No hydronephrosis.
== END | disposition home or self-care (01) ==
LOC: RADECHMAIN 08:21
PROVIDERS: ATTEND Family Medicine
DX: I51.7 Cardiomegaly (principal); I34.0 Nonrheumatic mitral (valve) insufficiency; I25.10 Atherosclerotic heart disease of native coronary artery without angina pectoris; R60.9 Edema, unspecified
CPT/HCPCS: 76770; 93306

== ENCOUNTER → 2019-02-22 | Outpatient (CLI) | payer MEDICARE, OTHER ==
--- NOTE | 2019-02-22 13:45 | PE ---
EXAMINATION TYPE: PET CT fusion skull to thigh DATE OF EXAM: 02/22/2019 COMPARISON: PET CT September 07, 2018 and older studies. HISTORY: Neuroendocrine tumor. TECHNIQUE: Following the intravenous administration of 13.73 mCi of F-18 FDG, whole body images are performed from the skull base to the midthigh. Images are reviewed on the computer in the coronal, a xial, and sagittal planes. Reconstructed rotating images are created on independent workstation and reviewed on the computer. A noncontrast CT is performed in conjunction with the PET scan. SCAN: Subsequent Scan FINDINGS: SKULL BASE AND NECK: No new areas of suspicious hypermetabolic uptake. CHEST, MEDIASTINUM, AND HILAR REGION: No new areas of suspicious hypermetabolic uptake. ABDOMEN AND PELVIS: Redemonstration of surgical changes right groin region with scar tissue and surgi gali clips near image 231 without suspicious new mass or hypermetabolic uptake. No new areas of suspic ious hypermetabolic uptake. OSSEOUS STRUCTURES: No new areas of suspicious hypermetabolic uptake. OTHER CT: Stable right internal jugular Mediport catheter. Stable fairly severe coronary artery calci fication and/or stent LAD and left circumflex including ramus intermedius. Liver is diffusely low dense consistent with fatty infiltration. Numerous small dependent calcified g allstones in contracted gallbladder redemonstrated. Slightly enlarged prostate gland consistent with BPH. Occasional colonic diverticula. IMPRESSION: No new areas of suspicious hypermetabolic uptake to suggest recurrent or metastatic malig nant recurrence.
== END | disposition home or self-care (01) ==
LOC: RADPETMAIN 11:07
PROVIDERS: ATTEND Internal Medicine Hematology & Oncology
DX: C7A.8 Other malignant neuroendocrine tumors (principal)
CPT/HCPCS: 78815

== ENCOUNTER → 2019-08-29 | Outpatient (CLI) | payer MEDICARE, OTHER ==
--- NOTE | 2019-08-31 19:42 | PE ---
EXAMINATION TYPE: PET CT fusion skull to thigh DATE OF EXAM: 08/29/2019 COMPARISON: CT abdomen pelvis 01/22/2018 Prior PET/CT: 02/22/2019 HISTORY: Neuroendocrine tumor right groin TECHNIQUE: Following the intravenous administration of 11.67 mCi of F-18 FDG, whole body images are performed from the skull base to the midthigh. Images are reviewed on the computer in the coronal, a xial, and sagittal planes. Reconstructed rotating images are created on independent workstation and reviewed on the computer. A localization and attenuation correction CT is performed in conjunction with the PET scan. DLP: 537.97 mGycm SCAN: Subsequent Blood glucose: 86 mg/dL Average Mediastinum SUV: 0.88 Average Liver SUV: 1.51 FINDINGS: NECK: No abnormal uptake THORAX: No abnormal uptake ABDOMEN: No abnormal uptake PELVIS: No abnormal uptake. No suspicious uptake in the right groin region is evident. OSSEOUS STRUCTURES: No abnormal uptake LOCALIZATION CT: Gallstones are noted. COMPARISON: No significant interval changes are evident. Postsurgical changes are more prevalent prio r exam. IMPRESSION: 1. No suspicious changes to suggest recurrent or metastatic neoplasm.
== END | disposition home or self-care (01) ==
LOC: RADPETMAIN 09:01
PROVIDERS: ATTEND Internal Medicine Hematology & Oncology
DX: C7A.8 Other malignant neuroendocrine tumors (principal)
CPT/HCPCS: 78815; A9552

== ENCOUNTER → 2020-08-27 | Outpatient (CLI) | payer MEDICARE, OTHER ==
--- NOTE | 2020-08-30 06:24 | PE ---
EXAMINATION TYPE: PET CT fusion skull to thigh DATE OF EXAM: 08/27/2020 COMPARISON: Prior PET/CT August 29, 2019 and older studies HISTORY: Neuroendocrine tumor diagnosed on biopsy in 2015 completed chemotherapy and radiation treatm ent through 2018. TECHNIQUE: Following the intravenous administration of 9.5 mCi of F-18 FDG, whole body images are pe rformed from the skull base to the midthigh. Images are reviewed on the computer in the coronal, axi al, and sagittal planes. Reconstructed rotating images are created on independent workstation and re viewed on the computer. A localization and attenuation correction CT is performed in conjunction wi th the PET scan. Blood glucose level equals 90 SCAN: Subsequent Scan FINDINGS: SKULL BASE AND NECK: No new areas of suspicious hypermetabolic uptake. CHEST, MEDIASTINUM, AND HILAR REGION: No new areas of suspicious hypermetabolic uptake. ABDOMEN AND PELVIS: Redemonstration of surgical changes right groin region with scar tissue and surgi gali clips near image 230 without suspicious new mass or hypermetabolic uptake. No new areas of suspic ious hypermetabolic uptake. OSSEOUS STRUCTURES: No new areas of suspicious hypermetabolic uptake. OTHER CT: Stable right internal jugular Mediport catheter. Stable fairly severe coronary artery calci fication and/or stent LAD and left circumflex including ramus intermedius. Liver is diffusely low dense consistent with fatty infiltration. Numerous small dependent calcified g allstones in contracted gallbladder redemonstrated. Slightly enlarged prostate gland consistent with BPH. Occasional colonic diverticula. IMPRESSION: No new areas of suspicious hypermetabolic uptake to suggest local recurrent or metastatic malignancy recurrence.
== END | disposition home or self-care (01) ==
LOC: RADPETMAIN 09:03
PROVIDERS: ATTEND Internal Medicine Hematology & Oncology
DX: C7A.8 Other malignant neuroendocrine tumors (principal); Z92.21 Personal history of antineoplastic chemotherapy; Z92.3 Personal history of irradiation
CPT/HCPCS: 78815; A9552

== ENCOUNTER 2021-01-03 06:36 | Day surgery (SDC) | payer MEDICARE, OTHER ==
[2020-12-30 12:21] VITALS: BMI 32.5
[~2021-01-03 06:36] MED LIST changes: +ACETAMINOPHEN TAB 500 MG TAB PO PRN; -ALPRAZolam 0.25 MG TAB PO PRN; -ALPRAZolam 0.5 MG TAB PO PRN; -ASPIRIN 325 MG TAB PO STA; -ATORVASTATIN 80 MG TAB PO STA; +HEPARIN SODIUM,PORCINE/PF 5,000 UNIT/0.5 ML SYRINGE SQ PRN; +LACTATED RINGERS 1,000 ML IV SCH; -NITROGLYCERIN SL TABS 0.4 MG TAB SUBLINGUAL PRN; -SODIUM CHLORIDE 0.9% 1,000 ML in EMPTY BAG 1 BAG IV ONE
[2021-01-03 07:01] VITALS: TEMP 97.4
[2021-01-03] MEDS ORDERED: ONDANSETRON 4 MG/2 ML VIAL IVP ONE (07:17)
[2021-01-03] MEDS ORDERED: DEXAMETHASONE SOD PHOSPHATE 4 MG/ML 1 ML VIAL IVP ONE (07:17)
[2021-01-03] MEDS ORDERED: ONDANSETRON 4 MG/2 ML VIAL ONE (07:18)
--- NOTE | 2021-01-03 07:50 | P.GSHP ---
History of Present Illness H&P Date: 01/03/21 Chief Complaint: Metastatic neuroendocrine tumor 60-year-old male diagnosed with metastatic neuroendocrine tumor approximately 6 years ago. Patient underwent therapy and resection. Patient has been cancer free for the last 2 years. He has had a port in since the onset. It appears to be a right internal jugular access. Patient has not had this flushed for several years. Here today to have this removed. No complaints with the port. Past Medical History Past Medical History: Cancer, Deep Vein Thrombosis (DVT), Hyperlipidemia, Hypertension, Myocardial Infarction ([place]), Sleep Apnea/CPAP/BIPAP Additional Past Medical History / Comment(s): rt groin cancer dec 2014, last chemo and Radiation 2017, DVT rt groin,uses cpap Last Myocardial Infarction Date:: apr 2014 History of Any Multi-Drug Resistant Organisms: None Reported Past Surgical History: Heart Catheterization, Heart Catheterization With Stent Additional Past Surgical History / Comment(s): rt groin biopsy - done in [facility] ( [facility]),heart stent x5 Past Anesthesia/Blood Transfusion Reactions: No Reported Reaction Additional Past Anesthesia/Blood Transfusion Reaction / Comment(s): no hx blood transfusion Date of Last Stent Placement:: 09/28/17 Smoking Status: Former smoker - Past Family History Father Family Medical History: Cancer Additional Family Medical History / Comment(s): throat-1957 Medications and Allergies Home Medications Medication Instructions Recorded Confirmed Type Cholecalciferol [Vitamin D3 (25 1,000 unit PO HS 03/22/17 01/03/21 History Mcg = 1000 Iu)] Metoprolol Succinate (ER) [Toprol 25 mg PO HS 03/22/17 01/03/21 History XL] Tamsulosin HCl [Flomax] 0.4 mg PO HS 09/12/17 01/03/21 History Telmisartan [Micardis] 10 mg PO HS 09/12/17 01/03/21 History Isosorbide Mononitrate [Isosorbide 30 mg PO HS 09/28/17 01/03/21 History Mononitrate ER] Clopidogrel [Plavix] 75 mg PO HS 12/30/20 01/03/21 History Evolocumab [Repatha Syringe] 0 mg SQ Q14D 12/30/20 01/03/21 History Furosemide [Lasix] 20 mg PO HS 12/30/20 01/03/21 History Allergies Allergy/AdvReac Type Severity Reaction Status Date / Time atorvastatin [From Lipitor] AdvReac joint Verified 01/03/21 06:49 swelling and pain Surgical - Exam Vital Signs Temp Pulse Resp BP Pulse Ox 97.4 F L 64 18 134/81 97 01/03/21 06:57 01/03/21 06:57 01/03/21 06:57 01/03/21 06:57 01/03/21 06:57 Physical exam: General: Well-developed, well-nourished HEENT: Normocephalic, sclerae nonicteric Abdomen: Nontender, nondistended Extremities: No edema Neuro: Alert and oriented Chest: Right-sided Port-A-Cath in place Assessment and Plan (1) Neuroendocrine tumor Narrative/Plan: Will proceed with Port-A-Cath removal at this time. We discussed the risks of difficulty removing the port, possible catheter breakage, hospital need for endovascular approach area patient is agreeable. Current Visit: Yes Status: Acute Code(s): D3A.8 - OTHER BENIGN NEUROENDOCRINE TUMORS SNOMED Code(s): 806255749
[2021-01-03] MEDS ORDERED: MIDAZOLAM 2 MG/2 ML VIAL ONE (07:59)
[2021-01-03] MEDS ORDERED: PROPOFOL 10 MG/ML 20 ML VIAL IV ONE (07:59)
[2021-01-03] MEDS ORDERED: fentaNYL (PF) 50 MCG/ML 2 ML AMP ONE (07:59)
[2021-01-03] MEDS ORDERED: LIDOCAINE 1%-EPI 1:100,000 20 ML VIAL SQ ONE ×2 (08:21)
[2021-01-03] MEDS ORDERED: NALOXONE 0.4 MG/ML 1 ML VIAL IV PRN (08:47)
[2021-01-03] MEDS ORDERED: HYDROcodone/APAP 5-325MG 1 EACH TAB PO PRN (08:47)
--- NOTE | 2021-01-03 08:48 | P.OP ---
Date of Procedure: 01/03/21 Procedure(s) Performed: PREOPERATIVE DIAGNOSIS: Neuroendocrine cancer POSTOPERATIVE DIAGNOSIS: Same PROCEDURE: Port-A-Cath removal SURGEON: Ilene EBL: Minimal ANESTHESIA: Sedation COMPLICATIONS: None OPERATIVE PROCEDURE: Patient was placed in the supine position. The patient was sedated per anesthesia that time. The chest was prepped and draped in the usual sterile fashion. The skin was localized with Marcaine solution. The previous incision was re-incised using a scalpel. The port was easily excised using accommodation of blunt dissection sharp dissection and electrocautery. The subcutaneous tissues were reapproximated using 3-0 Vicryl sutures. The skin was reapproximated using 4-0 Monocryl sutures. Skin glue was then applied. DISPOSITION: Stable to recovery room
[2021-01-03 08:57] VITALS: BP 111/72; PULSE 67; RESP 20
== END 2021-01-03 09:15 | disposition home or self-care (01) ==
LOC: OR 06:36
PROVIDERS: ATTEND Surgery
DX: Z45.2 Encounter for adjustment and management of vascular access device (principal); Z85.858 Personal history of malignant neoplasm of other endocrine glands; E78.5 Hyperlipidemia, unspecified; I10 Essential (primary) hypertension; Z86.718 Personal history of other venous thrombosis and embolism; I25.2 Old myocardial infarction; G47.30 Sleep apnea, unspecified; Z85.89 Personal history of malignant neoplasm of other organs and systems; Z92.21 Personal history of antineoplastic chemotherapy; Z92.3 Personal history of irradiation; Z95.5 Presence of coronary angioplasty implant and graft; Z87.891 Personal history of nicotine dependence; Z80.8 Family history of malignant neoplasm of other organs or systems; Z79.02 Long term (current) use of antithrombotics/antiplatelets; Z79.899 Other long term (current) drug therapy; Z88.8 Allergy status to other drugs, medicaments and biological substances; Z98.890 Other specified postprocedural states
CPT/HCPCS: 36590; J2250; J1100; J0690; J2405; J3010; J2704; J1644

== ENCOUNTER → 2021-08-19 | Outpatient (CLI) | payer MEDICARE, OTHER ==
--- NOTE | 2021-08-23 07:01 | PE ---
EXAMINATION TYPE: PET CT fusion skull to thigh DATE OF EXAM: 08/19/2021 COMPARISON: Prior PET/CT August 27, 2020 and older studies. HISTORY: Malignant melanoma. TECHNIQUE: Following the intravenous administration of 11.76 mCi of F-18 FDG, whole body images are performed from the top of skull to the bottom of feet. Images are reviewed on the computer in the co cathy, axial, and sagittal planes. Reconstructed rotating images are created on independent workstat ion and reviewed on the computer. A localization and attenuation correction CT is performed in conj unction with the PET scan. Blood glucose level equals 94. SCAN: Subsequent Scan FINDINGS: HEAD AND NECK: No new areas of suspicious hypermetabolic uptake. CHEST, MEDIASTINUM, AND HILAR REGION: No new areas of abnormal hypermetabolic uptake. ABDOMEN AND PELVIS: Redemonstration of surgical changes right groin region with scar tissue and surgi gali clips near image 258 without suspicious new mass or hypermetabolic uptake. No new areas of suspic ious hypermetabolic uptake. OSSEOUS STRUCTURES: No new areas of suspicious hypermetabolic uptake. LOWER EXTREMITIES: No areas of abnormal hypermetabolic uptake. OTHER CT: Interval removal of Mediport catheter. Stable fairly severe coronary artery calcification a nd/or stents. Low lung volumes and cardiomegaly redemonstrated. Liver is diffusely low dense consistent with fatty infiltration. Numerous small dependent calcified g allstones in contracted gallbladder redemonstrated. Cortical thinning in both kidneys redemonstrated. Slightly enlarged prostate gland consistent with BPH. Occasional colonic diverticula redemonstrated. IMPRESSION: No new areas of suspicious hypermetabolic uptake to suggest local recurrent or metastatic malignancy recurrence.
== END | disposition home or self-care (01) ==
LOC: RADXRMAIN 08:59
PROVIDERS: ATTEND Internal Medicine Hematology & Oncology
DX: C7A.8 Other malignant neuroendocrine tumors (principal)
CPT/HCPCS: 78815; A9552

== ENCOUNTER → 2022-08-04 | Outpatient (CLI) | payer MEDICARE, OTHER ==
--- NOTE | 2022-08-05 10:03 | PE ---
EXAMINATION TYPE: PET CT fusion skull to thigh DATE OF EXAM: 08/04/2022 CLINICAL INDICATION:Male, 61 years old with history of C7A.8 neuroendocrine tumors; TECHNIQUE: Following the intravenous administration of 11.7 mCi of F-18 FDG, whole body images are performed from the skull base to the midthigh. Images are reviewed on the computer in the coronal, a xial, and sagittal planes. Reconstructed rotating images are created on independent workstation and reviewed on the computer. A non-contrast CT is performed in conjunction with the PET scan. Glucose level 91 mg/dL COMPARISON: CT None, PET/CT 08/19/2021, FINDINGS: Mediastinal SUV mean is 1.5. Hepatic parenchyma SUV mean is 2.4. SKULL BASE AND NECK: No suspicious radiotracer activity. CHEST, MEDIASTINUM, AND HILAR REGION: No suspicious radiotracer activity. ABDOMEN AND PELVIS: No suspicious radiotracer activity. OSSEOUS STRUCTURES: No suspicious radiotracer activity. OTHER CT: Stable fairly severe coronary artery calcification and/or stents. Low lung volumes and card iomegaly redemonstrated. Atherosclerosis of the arterial vasculature including the coronary arteries. Liver is diffusely low dense consistent with fatty infiltration. Numerous small dependent calcified gallstones in contracted gallbladder redemonstrated. Cortical thinning in both kidneys redemonstrated . Slightly enlarged prostate gland consistent with BPH measuring up to 5.4 cm in transverse dimension . Occasional colonic diverticula redemonstrated. Fat-containing umbilical hernia. Fat-containing ingu inal hernias. IMPRESSION: No suspicious radiotracer activity. No evidence for recurrence or acute disease.
== END | disposition home or self-care (01) ==
LOC: RADPETMAIN 09:24
PROVIDERS: ATTEND Internal Medicine Hematology & Oncology
DX: C7A.8 Other malignant neuroendocrine tumors (principal)
CPT/HCPCS: 78815; A9552

== ENCOUNTER → 2022-10-19 | Outpatient (CLI) | payer MEDICARE, OTHER ==
--- NOTE | 2022-10-21 17:48 | MR ---
EXAMINATION TYPE: MR brain wo/w con DATE OF EXAM: 10/19/2022 9:52 AM CLINICAL INDICATION:Male, 61 years old with history of G31.84 MILD COGNITIVE IMPAIRMENT OF; Memory lo ss, Hx of CA COMPARISON: MRI brain 10/27/2012, PET/CT 08/04/2022 TECHNIQUE: Multi planar, multi sequence imaging was performed through the brain including: T1, T2, In version recovery, susceptibility weighted imaging and gradient echo imaging and Diffusion weighted im aging. The patient was then given intravenous contrast and multi planar, T1 fat-saturation images wer e obtained. IV Contrast: 10 cc Gadavist FINDINGS: The jones-white junctions, ventricular system, basal cisterns appear unremarkable. Diffusion-weighted imaging shows no evidence of restricted diffusion to suggest acute/subacute infarct. Intracranial art erial flow voids are maintained. Midline structures show no abnormality. Increase in number and size of scattered foci of high T2/FLAIR signal in the subcortical and deep white matter tracts of both cer ebral hemispheres. The largest within the right frontal lobe measuring 7 mm (series 502, image 20). A djacent to the left hepatic lobe measures 6 cm (series 502, image 19). No corresponding contrast-enha ncement. No other regions of abnormal contrast enhancement. The susceptibility weighted images do not reveal any evidence for micro-hemorrhage. The bone marrow signal is within normal limits. Paranasal sinuses and mastoid air cells: Minimal mucosal thickening of the right maxillary sinus. Visualized orbits: Left aphakia. IMPRESSION: 1. No evidence of acute/subacute infarct or abnormal enhancement. 2. Increase in size and number of multiple T2/FLAIR hyperintense foci throughout both cerebral hemisp heres. Etiologies include small vessel ischemic disease versus demyelination versus hypertension vers us chronic migraine.
== END | disposition home or self-care (01) ==
LOC: RADMRIMAIN 09:03
PROVIDERS: ATTEND Family Medicine
DX: G31.84 Mild cognitive impairment of uncertain or unknown etiology (principal)
CPT/HCPCS: 70553; A9585

== ENCOUNTER → 2023-07-27 | Outpatient (CLI) | payer MEDICARE, OTHER ==
--- NOTE | 2023-07-28 09:57 | MR ---
EXAMINATION TYPE: MR abdomen wo/w con DATE OF EXAM: 07/27/2023 10:16 AM CLINICAL INDICATION:Male, 62 years old with history of C7A8 OTH MALIG NEURO TUMORS R10.2 PELV PER FRANKY N; PHH, Rt hip pain, hx of pelvic cancer COMPARISON: PET/CT 1223, CT 01/22/2018 TECHNIQUE: Multiplanar multi-sequence imaging was performed without contrast. Post contrast imaging was performed. IV Contrast: 9 cc Gadavist FINDINGS: LOWER CHEST: No gross irregularity. ABDOMEN Liver: No evidence for hepatic steatosis or cirrhosis. Simple appearing right hepatic lobe cyst. No s uspicious postcontrast enhancement. Gallbladder and Bile ducts: No evidence for ductal dilation, or biliary stricture or evidence of chol edocholithiasis. The gallbladder noted multiple gallstones in the lumen. Pancreas: No ductal dilation. No evidence for solid mass. Spleen: Normal for size. Adrenal glands: Unremarkable. Kidneys: No evidence for obstructive uropathy. No suspicious renal masses. Stomach and Bowel: No evidence for bowel wall thickening or evidence for obstruction. Retroperitoneum/Peritoneum: No evidence of pneumoperitoneum or free fluid. Vasculature: No aortic aneurysm. 2 right renal arteries. One left renal artery. Vasculature appears patent. Musculoskeletal: The osseous structures appear intact. Lymph Nodes: No gross evidence for lymphadenopathy. Abdominal wall: Fat-containing umbilical hernia. IMPRESSION: 1. No lymphadenopathy or mass. No evidence for acute abdominal process. 2. Cholelithiasis.
== END | disposition home or self-care (01) ==
LOC: RADMRIMAIN 09:25
PROVIDERS: ATTEND Family Medicine
DX: C7A.8 Other malignant neuroendocrine tumors (principal); I82.501 Chronic embolism and thrombosis of unspecified deep veins of right lower extremity; K80.20 Calculus of gallbladder without cholecystitis without obstruction
CPT/HCPCS: 74183; A9585

== ENCOUNTER → 2023-07-31 | Outpatient (CLI) | payer MEDICARE, OTHER ==
--- NOTE | 2023-07-31 13:40 | US ---
EXAMINATION TYPE: US arterial LE single level DATE OF EXAM: 07/31/2023 9:11 AM CLINICAL INDICATION: Male, 62 years old with history of I73.9 PERIPHERAL VASCULAR DISEASE, UNSPECIFIE D; Coldness, tingling right leg. History of: Smoker: previous Hypertension: yes Diabetic: no Hyperlipidemia: yes TIA/CVA: no Previous Vascular Surgery: cardiac stents, 4 in 2015, 1 in 2020 CAD: yes UT: yes Vascular Ulcers: no Claudication: no Gangrene: no Doppler Waveforms: Right: Multiphasic Left: Multiphasic Right Brachial Pressure: 156 Left Brachial Pressure: 141 Ankle-Brachial Indices: Right: 1.12 Left: 1.02 (Vessel hardening > 1.4; Normal 0.9 - 1.4, Moderate 0.7 - 0.9, Severe 0.5-0.7) Toe Brachial Indices: Right: 0.83 Left: 0.76 IMPRESSION: Normal ankle-brachial indices.
== END | disposition home or self-care (01) ==
LOC: RADUSWWP 08:45
PROVIDERS: ATTEND Family Medicine
DX: I73.9 Peripheral vascular disease, unspecified (principal); I25.10 Atherosclerotic heart disease of native coronary artery without angina pectoris; E78.5 Hyperlipidemia, unspecified; I10 Essential (primary) hypertension; Z87.891 Personal history of nicotine dependence
CPT/HCPCS: 93922

== ENCOUNTER → 2023-07-31 | Outpatient (CLI) | payer MEDICARE, OTHER ==
--- NOTE | 2023-08-01 11:14 | MR ---
EXAMINATION TYPE: MR pelvis wo/w con DATE OF EXAM: 07/31/2023 6:34 PM CLINICAL INDICATION:Male, 62 years old with history of C7.A8 OTH MALIG NEURO TUMORS R10.2 PELV AND PE R PA; PHH, Pain Right hip, Numbness in Rt leg with edema, High grade neuroendocrine cancer Rt groin COMPARISON: 07/27/2023., PET/CT 08/05/2022 TECHNIQUE: Triplane multisequence imaging was performed of the pelvis. IV Contrast: 10.5 cc Gadavist FINDINGS: Reproductive: Prostate gland is enlarged measuring up to 5 20 cm in transverse dimension. Bladder: Unremarkable. Bowel: Unremarkable as visualized. Peritoneum: No free fluid in the pelvis. Lymph nodes: No evidence of adenopathy. Vasculature: Unremarkable. Musculoskeletal: Abnormal bone signal anterior to the right hip without CT correlate on 08/04/2022. Th is is predominantly high T1 high T2 signal with does not fat sat, on compression imaging. Is mild pos tcontrast enhancement present. No abnormal PET activity is seen within this area on prior.. Mild dege neration changes of the hips with osteophyte formation superior acetabulum. Abdominal wall/soft tissues: Unremarkable. IMPRESSION: 1. Mild hip osteoarthrosis. 2. Abnormal bone signal near the right anterior acetabulum in the right femoral neck with mild postc ontrast enhancement. Given patient's history of cancer consider follow-up PET/CT with neuroendocrine specific radiotracer. 3. Prostatomegaly correlate with serum PSA.
== END | disposition home or self-care (01) ==
LOC: RADMRIMAIN 17:30
PROVIDERS: ATTEND Family Medicine
DX: N40.0 Benign prostatic hyperplasia without lower urinary tract symptoms (principal); M16.0 Bilateral primary osteoarthritis of hip; C7A.8 Other malignant neuroendocrine tumors; I82.501 Chronic embolism and thrombosis of unspecified deep veins of right lower extremity; R20.2 Paresthesia of skin; R60.0 Localized edema
CPT/HCPCS: 72197; A9585

== ENCOUNTER → 2023-08-17 | Outpatient (CLI) | payer MEDICARE, OTHER ==
--- NOTE | 2023-08-23 13:34 | PE ---
EXAMINATION TYPE: PET CT fusion skull to thigh DATE OF EXAM: 08/17/2023 COMPARISON: No recent pertinent CT. Prior PET/CT: 08/19/2021 HISTORY: Malignant neuroendocrine tumor TECHNIQUE: Following the intravenous administration of 10.16 mCi of F-18 FDG, whole body images are performed from the skull base to the midthigh. Images are reviewed on the computer in the coronal, a xial, and sagittal planes. Reconstructed rotating images are created on independent workstation and reviewed on the computer. A localization and attenuation correction CT is performed in conjunction with the PET scan. DLP: 537.97 mGycm SCAN: Subsequent Blood glucose: 77 mg/dL Average Mediastinum SUV: 1.56 Average Liver SUV: 2.34 FINDINGS: NECK: No abnormal uptake THORAX: No abnormal uptake ABDOMEN: No suspicious uptake. Small focus radiotracer anterior to the left psoas muscle likely relat ed to ureter PELVIS: No abnormal uptake OSSEOUS STRUCTURES: No abnormal uptake LOCALIZATION CT: Cholelithiasis COMPARISON: No significant interval change IMPRESSION: 1. No suspicious uptake to suggest recurrent or metastatic recurrence. 2. Incidental note of cholelithiasis
== END | disposition home or self-care (01) ==
LOC: RADPETMAIN 14:35
PROVIDERS: ATTEND Internal Medicine Hematology & Oncology
DX: C7A.8 Other malignant neuroendocrine tumors (principal)
CPT/HCPCS: 78815; A9552

== ENCOUNTER 2023-12-18 09:21 | Day surgery (SDC) | payer MEDICARE, OTHER ==
[2023-12-14 16:19] VITALS: BMI 31.8
[~2023-12-18 09:21] MED LIST changes: -ACETAMINOPHEN TAB 500 MG TAB PO PRN; -HEPARIN SODIUM,PORCINE/PF 5,000 UNIT/0.5 ML SYRINGE SQ PRN
[2023-12-18 09:46] VITALS: TEMP 98.1
[2023-12-18] MEDS: IV FLUID CONTINUATION 1,000 ML IV ONE (09:57)
[2023-12-18] MEDS ORDERED: PROPOFOL 10 MG/ML 20 ML VIAL IV ONE (10:16)
--- NOTE | 2023-12-18 10:37 | P.PCN ---
Date of Procedure: 12/18/23 Procedure(s) Performed: BRIEF HISTORY: Patient is a 63-year-old pleasant white male scheduled for an elective colonoscopy as a part of painful colon cancer. PROCEDURE PERFORMED: Colonoscopy with biopsy. PREOPERATIVE DIAGNOSIS: Screening for colon cancer. IV sedation per Anesthesia. PROCEDURE: After informed consent was obtained, the patient, was brought into the endoscopy unit. IV sedation was administered by Anesthesia under continuous monitoring. Digital rectal examination was normal. Initially the Olympus CF-160 flexible video colonoscope was then inserted in the rectum, gradually advanced into the cecum without any difficulty. Careful examination was performed as the scope was gradually being withdrawn. Ileocecal valve and the appendiceal orifice were visualized and appeared normal. Prep was excellent. Mucosa of the cecum, normal. In the ascending colon there was a 3 mm sessile polyp that was removed by cold biopsy. Rest of the ascending colon, transverse colon, descending colon, sigmoid colon, and rectum appeared normal. Retroflexion was performed in the rectum and no lesions were seen. The patient tolerated the procedure well. IMPRESSION: 3 mm ascending colon positive post cold biopsy Rest of the colon appeared normal. RECOMMENDATIONS: Findings of this examination were discussed with the patient as well as his family. He was advised to follow with the biopsy results. If the biopsy reveals adenoma he can have repeat colonoscopy in 5 years.
[2023-12-18 10:42] VITALS: RESP 16
[2023-12-18 10:57] VITALS: BP 130/84; PULSE 64
== END 2023-12-18 11:20 | disposition home or self-care (01) ==
LOC: ORWHC2ENDO 09:21
PROVIDERS: ATTEND Internal Medicine Gastroenterology
DX: Z12.11 Encounter for screening for malignant neoplasm of colon
CPT/HCPCS: 45380; 88305

== ENCOUNTER 2024-02-11 01:51 | Observation (INO) | payer MEDICARE, OTHER ==
[2024-02-11] MEDS ORDERED: MORPHINE SULFATE 4 MG/ML SYRINGE IV PRN (01:53)
[2024-02-11] MEDS ORDERED: NALOXONE 0.4 MG/ML 1 ML VIAL IV PRN (01:53)
[2024-02-11] MEDS ORDERED: ONDANSETRON 4 MG/2 ML VIAL IVP PRN (01:53)
--- NOTE | 2024-02-11 01:53 | ED ---
Recheck HPI - General Stated Complaint: Chest pain Time Seen by Provider: 02/11/24 01:51 Source: RN notes reviewed, old records reviewed Mode of arrival: EMS Limitations: no limitations - History of Present Illness Initial Comments: This is a 63-year-old male with a chest pain. Patient coming in for chest pain history of chest pain and suspected unstable angina. Patient has no travel history or sick contacts, history of underlying CAD -: hour(s) Symptoms Since Prior Visit: no new symptoms Associated Symptoms: none Treatments Prior to Arrival: other - Related Data Home Medications Medication Instructions Recorded Confirmed Cholecalciferol [Vitamin D3 (25 1,000 unit PO HS 03/22/17 02/11/24 Mcg = 1000 Iu)] Metoprolol Succinate (ER) [Toprol 25 mg PO HS 03/22/17 02/11/24 XL] Tamsulosin HCl [Flomax] 0.4 mg PO HS 09/12/17 02/11/24 Telmisartan [Micardis] 10 mg PO HS 09/12/17 02/11/24 Isosorbide Mononitrate [Isosorbide 30 mg PO HS 09/28/17 02/11/24 Mononitrate ER] Evolocumab [Repatha Syringe] 140 mg SQ Q30D 12/30/20 02/11/24 Aspirin [Adult Low Dose Aspirin EC] 1 tab PO DAILY 12/18/23 02/11/24 Allergies Allergy/AdvReac Type Severity Reaction Status Date / Time atorvastatin [From Lipitor] AdvReac joint Verified 02/11/24 08:11 swelling and pain Review of Systems ROS Statement: Those systems with pertinent positive or pertinent negative responses have been documented in the HPI. ROS Other: All systems not noted in ROS Statement are negative. Past Medical History Past Medical History: Cancer, Deep Vein Thrombosis (DVT), Hyperlipidemia, Hypertension, Myocardial Infarction ([place]), Sleep Apnea/CPAP/BIPAP Additional Past Medical History / Comment(s): Hx right groin cancer Dec 2014, last chemo and radiation 2017, hx DVT right groin, uses CPAP. Last Myocardial Infarction Date:: Apr 2014 History of Any Multi-Drug Resistant Organisms: None Reported Past Surgical History: Heart Catheterization, Heart Catheterization With Stent Additional Past Surgical History / Comment(s): Right groin biopsy - done in [facility] ( [facility]), heart stent X5, colonoscopy X2. Past Anesthesia/Blood Transfusion Reactions: No Reported Reaction Additional Past Anesthesia/Blood Transfusion Reaction / Comment(s): No hx blood transfusion. Date of Last Stent Placement:: 09/28/17 Smoking Status: Former smoker - Past Family History Father Family Medical History: Cancer Additional Family Medical History / Comment(s): Throat cancer-1958. General Exam General appearance: alert, in no apparent distress Head exam: Present: atraumatic, normocephalic, normal inspection Eye exam: Present: normal appearance, PERRL, EOMI. Absent: scleral icterus, conjunctival injection, periorbital swelling ENT exam: Present: normal exam, mucous membranes moist Neck exam: Present: normal inspection. Absent: tenderness, meningismus, lym phadenopathy Respiratory exam: Present: normal lung sounds bilaterally. Absent: respiratory distress, wheezes, rales, rhonchi, stridor Cardiovascular Exam: Present: regular rate, normal rhythm, normal heart sounds. Absent: systolic murmur, diastolic murmur, rubs, gallop, clicks GI/Abdominal exam: Present: soft, normal bowel sounds. Absent: distended, tenderness, guarding, rebound, rigid Extremities exam: Present: normal inspection, full ROM, normal capillary refill. Absent: tenderness, pedal edema, joint swelling, calf tenderness Back exam: Present: normal inspection Neurological exam: Present: alert, oriented X3, CN II-XII intact Psychiatric exam: Present: normal affect, normal mood Skin exam: Present: warm, dry, intact, normal color. Absent: rash Course Vital Signs 02/11/24 02/11/24 02/11/24 01:52 03:21 05:17 Temperature 97.8 F Pulse Rate 89 80 70 Respiratory 16 14 13 Rate Blood Pressure 134/86 140/90 117/77 O2 Sat by Pulse 94 L 93 L 95 Oximetry 02/11/24 02/11/24 02/11/24 06:38 07:28 11:14 Temperature 97.9 F Pulse Rate 71 78 Respiratory 13 16 16 Rate Blood Pressure 123/81 132/78 136/85 O2 Sat by Pulse 95 99 99 Oximetry 02/11/24 02/11/24 13:00 17:16 Temperature Pulse Rate 79 77 Respiratory 18 16 Rate Blood Pressure 131/90 146/84 O2 Sat by Pulse 98 98 Oximetry - Reevaluation(s) Reevaluation #1: 02/11/24 01:52 Medical records reviewed Reevaluation #2: 02/11/24 01:52 Patient chest pain is improved Reevaluation #3: 02/11/24 01:52 Patient informed of results and questions answered Reevaluation #4: Was pt. sent in by a medical professional or institution (, [employer], ORGANIZATIONAL RESEARCH CONSULTANT, urgent care, hospital, or senior care...) When possible be specific @ -no Did you speak to anyone other than the patient for history (EMS, parent, family, police, friend...)? What history was obtained from this source @ -no Did you review nursing and triage notes (agree or disagree)? Why? @ -agree Are old charts reviewed (outside hosp., previous admission, EMS record, old EKG, old radiological studies, urgent care reports/EKG's, senior care records)? Report findings @ -yes Differential Diagnosis (chest pain, altered mental status, abdominal pain women, abdominal pain men, vaginal bleeding, weakness, fever, dyspnea, syncope, headache, dizziness, GI bleed, back pain, seizure, CVA, palpatations, mental health, musculoskeletal)? @ -prior EKG interpreted by me (3pts min.). @ -yes X-rays interpreted by me (1pt min.). @ -yes negative for acute disease CT interpreted by me (1pt min.). @ -no U/S interpreted by me (1pt. min.). @ -no What testing was considered but not performed or refused? (CT, X-rays, U/S, labs)? Why? @ -none What meds were considered but not given or refused? Why? @ -none Did you discuss the management of the patient with other professionals (professionals i.e. FEL[employer] Dillon, ORGANIZATIONAL RESEARCH CONSULTANT, lab, RT, psych nurse, elementary school social worker, ppa teacher, teacher, chief financial officer, correctional case manager)? Give summary @ -no Was smoking cessation discussed for >3mins.? @ -no Was critical care preformed (if so, how long)? @ -yes31 Were there social determinants of health that impacted care today? How? (Homelessness, low income, unemployed, alcoholism, drug addiction, transportation, low edu. Level, literacy, decrease access to med. care, long term, rehab)? @ -none Was there de-escalation of care discussed even if they declined (Discuss DNR or withdrawal of care, Hospice)? DNR status @ -no What co-morbidities impacted this encounter? (DM, HTN, Smoking, COPD, CAD, Cancer, CVA, ARF, Chemo, Hep., AIDS, mental health diagnosis, sleep apnea, morbid obesity)? @ -none Was patient admitted / discharged? Hospital course, mention meds given and route, prescriptions, significant lab abnormalities, going to OR and other pertinent info. @ - 63 male to ER for evaluation excepted in transfer with history of heart disease for chest pain observation and unstable angina Admitted Undiagnosed new problem with uncertain prognosis? @ -no Drug Therapy requiring intensive monitoring for toxicity (Heparin, Nitro, Insulin, Cardizem)? @ -no Were any procedures done? @ -no Diagnosis/symptom? @ -Chest pain and unstable angina Acute, or Chronic, or Acute on Chronic? @ -Acute Uncomplicated (without systemic symptoms) or Complicated (systemic symptoms)? @ -Complicated Side effects of treatment? @ -no Exacerbation, Progression, or Severe Exacerbation? @ -exacerbation Poses a threat to life or bodily function? How? (Chest pain, [place], [place], pneumonia, PE, COPD, DKA, ARF, appy, cholecystitis, CVA, Diverticulitis, Homicidal, Suicidal, threat to staff... and all critical care pts) @ -yes chest pain Reevaluation #5: Differential Chest Pain: Stable Angina, Unstable Angina, STEMI, NSTEMI Aortic Dissection, Pneumothorax, Musculoskeletal, Esophageal Spasm GERD, Cholecystitis, Pancreatitis, Zoster, this is not meant to be an all-inclusive list. - Consultations Consultation #1: Spoke with [facility] who agrees to admit this patient Medical Decision Making - Medical Decision Making 63 male to ER for evaluation excepted in transfer with history of heart disease for chest pain observation and unstable angina - Lab Data Result diagrams: 02/11/24 06:50 02/11/24 06:50 - EKG Data -: EKG Interpreted by Me (EKG is sinus 79 RI 176 QRS 104 QTc 426) - Radiology Data Radiology results: report reviewed (X-rays negative for acute disease), image reviewed Critical Care Time Critical Care Time: Yes Total Critical Care Time: 31 Disposition Clinical Impression: Chest pain, Unstable angina Disposition: ADMITTED IP TO THIS HOSP Condition: Fair Is patient prescribed a controlled substance at d/c from ED?: No Time of Disposition: 02:00
[2024-02-11] MEDS: HEPARIN SOD,PORK IN 0.45% NACL 25,000 UNIT in 0.45% NACL 1 250ML.BAG IV SCH (02:10)
[2024-02-11] MEDS: SODIUM CHLORIDE 0.9% 1,000 ML IV SCH (02:10)
[2024-02-11 07:10] LABS: Basophils % (A) 0 %; Eosinophils % (A) 1 %; HCT 45.1 % (39.0-53.0); HGB 15.2 gm/dL (13.0-17.5); Lymphocytes # (A) 0.9 k/uL (1.0-4.8); Lymphocytes % (A) 10 %; MCH 29.7 pg (25.0-35.0); MCHC 33.6 g/dL (31.0-37.0); MCV 88.3 fL (80.0-100.0); Mean Platelet Volume 6.9; Monocytes # (A) 0.6 k/uL (0-1.0); Monocytes % (A) 7 %; Neutrophils # (A) 6.9 k/uL (1.3-7.7); Neutrophils % (A) 80 %; Platelet Count 253 k/uL (150-450); RBC 5.11 m/uL (4.30-5.90); RDW 12.9 % (11.5-15.5); WBC 8.6 k/uL (3.8-10.6)
[2024-02-11 07:22] LABS: ALT 26 U/L (4-49); AST 18 U/L (17-59); African American GFR (CKD) >90 (>60 ml/min/1.73 sqM); Albumin 3.8 g/dL (3.5-5.0); Alkaline Phosphatase 76 U/L (38-126); Anion Gap 7 mmol/L; Blood Urea Nitrogen 19 mg/dL (9-20); Calcium 8.8 mg/dL (8.4-10.2); Carbon Dioxide 24 mmol/L (22-30); Chloride 104 mmol/L (98-107); Glucose 93 mg/dL (74-99); Magnesium 1.8 mg/dL (1.6-2.3); Non-African American GFR(CKD) >90 (>60 ml/min/1.73 sqM); Potassium 3.8 mmol/L (3.5-5.1); Sodium 135 mmol/L (137-145); Total Bilirubin 0.6 mg/dL (0.2-1.3); Total Protein 6.2 g/dL (6.3-8.2)
[2024-02-11 07:32] VITALS: TEMP 97.9
--- NOTE | 2024-02-11 08:30 | XR ---
EXAMINATION TYPE: XR chest 1V DATE OF EXAM: 02/11/2024 COMPARISON: NONE HISTORY: Chest pain TECHNIQUE: Single frontal view of the chest is obtained. FINDINGS: There is no focal air space opacity, pleural effusion, or pneumothorax seen. The cardiac silhouette size is within normal limits. The osseous structures are intact. IMPRESSION: No acute process. [facility], , 02/11/2024 8:28 AM
[2024-02-11] MEDS: HEPARIN SODIUM 1,000 UN/ML (10ML VL) IV PRN (09:08)
[2024-02-11 15:20] LABS: NT-Pro-B-Type Natriuretic Pept 41 pg/mL (0-125)
--- NOTE | 2024-02-11 15:33 | CA ---
Stress Echo Report Warren Sargent Age: 63 Gender: M : 1960 Exam Date: 02/11/2024 11:46 Exam Location: [facility] Ht (in): 72 Wt (lb): 235 Ordering Physician: Ángel Bruno MD ([id number]) Referring Physician: Baldomero,, Product Strategy Director: Kalie Rubio RDCS Technologist Procedure CPT: Indication: Substernal chest pressure ICD-9 Codes: Rhythm: Patient History: Cardiac Medications: SEE CHART Medications in past 24 hours: Contrast: N/A Stress Results Protocol: Gio Total dose(mL): NA Exercise Duration (min:sec): 7:[address] Depression (mm): Angina Score: Osuna Score: METS: 8.3 Resting HR: 84 Resting BP: 141 / 92 Peak HR: 155 Peak BP: 196 / 73 Max Predicted HR: 155 100 % Max Predicted HR Target HR: 132 Double Product: [id number] Stress Summary: Patient exercised on Gio protocol for 7 minutes 14 seconds, achieving 8.3 METS. BP Response: Reason for Termination: Reached target heart rate or work-load Cardiac Symptoms: NO SYMPTOMS ECG Analysis Resting ECG: Normal sinus rhythm, heart rate 69 bpm Stress ECG: No significant ST-T wave changes that are diagnostic for ischemia. There were occasional PVCs noted during the stress test. There were no sustained arrhythmias. Arrhythmia: Echo Analysis Resting Echo: No obvious regional wall motion abnormality at rest. Normal global LV systolic function. Peak Echo Analysis: Normal augmentation of global and segmental systolic function with stress. No obvious stress- induced regional wall motion abnormality. MEASUREMENTS (Male/Female) Normal Values CONCLUSIONS Overall normal treadmill echo stress test Fair exercise tolerance for age achieving 8.3 METS Nonischemic ECG and echocardiographic response to treadmill exercise Normal hemodynamic and clinical response to treadmill exercise Dr Ángel Bruno (Electronically Signed) Final Date: 11 February 2024 15:32
[2024-02-11 15:38] LABS: Chol/HDL Ratio 4.12 Ratio; LDL Cholesterol,Calculated 113.5 mg/dL (0.0-131.0)
--- NOTE | 2024-02-11 16:18 | P.CRDCN ---
History of Present Illness Consult date: 02/11/24 History of present illness: HISTORY OF PRESENTING ILLNESS Patient is a 63-year-old male with past medical history of hypertension, BPH, prior history of CAD status post PCI x 5. He is known to Dr. Greene on outpatient basis. Patient presented to the hospital because of concerns of substernal chest pressure that started last night when he was sitting in a chair watching TV. On admission his ECG shows sinus rhythm Troponin x 3 were negative, LDL 113, TSH 1.1, creatinine 0.8 REVIEW OF SYSTEMS 14 point review of system is negative except what is mentioned above in HPI. PHYSICAL EXAMINATION Vital signs reviewed. Head: Normocephalic. Eyes: Sclerae nonicteric. Neck: Brisk carotid upstroke, no jugular venous distention. Lungs: Clear to auscultation. Heart: Regular rate and rhythm, S1-S2, no S3, no murmur or rub. Abdomen: Soft nontender, positive bowel sounds. Extremities: No edema, intact distal pulses. Neuro: Alert, oritented, no focal deficits. Detailed neuro exam was not performed. ASSESSMENT Substernal chest pressure, rule out of ACS Stable CAD status post PCI Essential hypertension Obesity BPH PLAN His stress echocardiogram did not show any stress-induced ECG or echocardiographic abnormality suggestive of ischemia. His exercise tolerance was fair achieving 8.3 METS. He has normal hemodynamic and clinical response to treadmill exercise. I would continue his current medications aspirin, metoprolol succinate 25 mg daily, Imdur 30 mg daily, telmisartan and Repatha. If he has any recurrence of symptoms, would suggest addition of Ranexa 500 mg twice daily for stable angina management. Cholesterols are still uncontrolled on Repatha. Would recommend addition of Zetia or statin Recommend outpatient follow-up with Dr. Greene. Clear from cardiac standpoint. 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 Last Myocardial Infarction Date:: Apr 2014 History of Any Multi-Drug Resistant Organisms: None Reported Past Surgical History: Heart Catheterization, Heart Catheterization With Stent Additional Past Surgical History / Comment(s): Right groin biopsy - done in [facility] ( [facility]), heart stent X5, colonoscopy X2. Past Anesthesia/Blood Transfusion Reactions: No Reported Reaction Additional Past Anesthesia/Blood Transfusion Reaction / Comment(s): No hx blood transfusion. Date of Last Stent Placement:: 09/28/17 Smoking Status: Former smoker - Past Family History Father Family Medical History: Cancer Additional Family Medical History / Comment(s): Throat cancer-8. Medications and Allergies Home Medications Medication Instructions Recorded Confirmed Type Cholecalciferol [Vitamin D3 (25 1,000 unit PO HS 03/22/17 02/11/24 History Mcg = 1000 Iu)] Metoprolol Succinate (ER) [Toprol 25 mg PO HS 03/22/17 02/11/24 History XL] Tamsulosin HCl [Flomax] 0.4 mg PO HS 09/12/17 02/11/24 History Telmisartan [Micardis] 10 mg PO HS 09/12/17 02/11/24 History Isosorbide Mononitrate [Isosorbide 30 mg PO HS 09/28/17 02/11/24 History Mononitrate ER] Evolocumab [Repatha Syringe] 140 mg SQ Q30D 12/30/20 02/11/24 History Aspirin [Adult Low Dose Aspirin EC] 1 tab PO DAILY 12/18/23 02/11/24 History Allergies Allergy/AdvReac Type Severity Reaction Status Date / Time atorvastatin [From Lipitor] AdvReac joint Verified 02/11/24 08:11 swelling and pain Physical Exam Vitals: Vital Signs Temp Pulse Resp BP Pulse Ox 02/11/24 13:00 79 18 131/90 98 02/11/24 11:14 78 16 136/85 99 02/11/24 07:28 97.9 F 16 132/78 99 02/11/24 06:38 71 13 123/81 95 02/11/24 05:17 70 13 117/77 95 02/11/24 03:21 80 14 140/90 93 L 02/11/24 01:52 97.8 F 89 16 134/86 94 L Intake and Output 02/11/24 02/11/24 02/11/24 06:59 14:59 22:59 Intake Total 100.680 Balance 100.680 Intake: Intake, IV Titration 100.680 Amount Heparin Sod,Pork in 0.45% 100.680 NaCl 25,000 unit In 0.45 % NaCl 1 250ml.bag @ 9. 381 UNITS/KG/HR 10 mls/hr IV .Q24H [facility] Rx#: [id number] Other: Weight 106.594 kg Results 02/11/24 06:50 02/11/24 06:50 Cardiac Enzymes 02/11/24 02/11/24 02/11/24 Range/Units 04:20 06:50 06:50 AST 18 (17-59) U/L Troponin I <0.012 <0.012 (0.000-0.034) ng/mL Coagulation 02/11/24 02/11/24 Range/Units 06:50 14:50 APTT 31.7 H 50.3 H (22.0-30.0) sec Lipids 02/11/24 Range/Units 06:50 Triglycerides 216.00 H (0.00-149.00) mg/dL Cholesterol 207.00 H (0.00-200.00) mg/dL HDL Cholesterol 50.30 (40.00-60.00) mg/dL Cholesterol/HDL Ratio 4.12 Ratio CBC 02/11/24 Range/Units 06:50 WBC 8.6 (3.8-10.6) k/uL RBC 5.11 (4.30-5.90) m/uL Hgb 15.2 (13.0-17.5) gm/dL Hct 45.1 (39.0-53.0) % Plt Count 253 (150-450) k/uL Comprehensive Metabolic Panel 02/11/24 Range/Units 06:50 Sodium 135 L (137-145) mmol/L Potassium 3.8 (3.5-5.1) mmol/L Chloride 104 (98-107) mmol/L Carbon Dioxide 24 (22-30) mmol/L BUN 19 (9-20) mg/dL Creatinine 0.87 (0.66-1.25) mg/dL Glucose 93 (74-99) mg/dL Calcium 8.8 (8.4-10.2) mg/dL AST 18 (17-59) U/L ALT 26 (4-49) U/L Alkaline Phosphatase 76 (38-126) U/L Total Protein 6.2 L (6.3-8.2) g/dL Albumin 3.8 (3.5-5.0) g/dL Current Medications Generic Name Dose Route Start Last Admin Trade Name Freq PRN Reason Stop Dose Admin Aspirin 81 mg 02/12/24 09:00 Aspirin 81 Mg PO DAILY [facility] Heparin Sodium (Porcine) 0 unit 02/11/24 01:53 02/11/24 09:08 Heparin Sodium 1,000 Un/Ml (10ml Vl) IV 4,000 unit PER PROTOCOL PRN Administration Low PTT Protocol Heparin Sodium/Sodium Chloride 250 mls @ 10 mls/hr 02/11/24 02:00 02/11/24 12:20 25,000 unit/ Sodium Chloride IV 12.381 units/kg/hr .Q24H [facility] 13.197 mls/hr Titration Protocol 9.381 UNITS/KG/HR Sodium Chloride 1,000 mls @ 20 mls/hr 02/11/24 02:00 02/11/24 02:10 Saline 0.9% IV 20 mls/hr .Q24H [facility] Administration Isosorbide Mononitrate 30 mg 02/11/24 21:00 Isosorbide Mononitrate Er 30 Mg Tab.Er.24h PO HS [facility] Losartan Potassium 25 mg 02/11/24 21:00 Losartan 25 Mg Tab PO HS [facility] Metoprolol Succinate 25 mg 02/11/24 21:00 Metoprolol Succinate (Er) 25 Mg Tab.Er.24h PO HS [facility] Morphine Sulfate 4 mg 02/11/24 01:53 Morphine Sulfate 4 Mg/Ml Syringe IV Q4HR PRN Severe Pain (Scale 7 to 10) Naloxone HCl 0.2 mg 02/11/24 01:53 Naloxone 0.4 Mg/Ml 1 Ml Vial IV Q2M PRN Opioid Reversal Ondansetron HCl 4 mg 02/11/24 01:53 Ondansetron 4 Mg/2 Ml Vial IVP Q8HR PRN Nausea And Vomiting Tamsulosin HCl 0.4 mg 02/11/24 21:00 Tamsulosin 0.4 Mg Cap.Er.24h PO HS [facility] Intake and Output 02/11/24 02/11/24 02/11/24 06:59 14:59 22:59 Intake Total 100.680 Balance 100.680 Intake: Intake, IV Titration 100.680 Amount Heparin Sod,Pork in 0.45% 100.680 NaCl 25,000 unit In 0.45 % NaCl 1 250ml.bag @ 9. 381 UNITS/KG/HR 10 mls/hr IV .Q24H [facility] Rx#: [id number] Other: Weight 106.594 kg 02/11/24 06:50 02/11/24 06:50
--- NOTE | 2024-02-11 16:43 | P.HPIM ---
History of Present Illness H&P Date: 02/11/24 This note will serve as the H&P along with discharge summary. 63 year old M with PMH of CAD with stenting, HTN, BPH presents to the ED for chest pain that started last night after dinner. Described as sharp and stabbing back pain radiating to the chest. Pain not worsened with movement or deep inspi ration. No diaphoresis, nausea or vomiting. This prompted him to come to the ED. In the ED he underwent extensive evaluation. BP 134/86, HR 89, T 97.8F, RR 16, 94% on RA. CBC, Coag panel, CMP significant for APTT 31.7. Trop < 0.012 x 2. Lipid panel T. Chol 207 LDL 113.5, HDL 50.3. TSH 1.1. EKG sinus rhythm. CXR negative. Started on heparin drip and admitted for cardiology evaluation. Underwent stress echo which was negative. Discussed with Dr. Bruno, cleared from Cardiology standpoint. Patient reports no chest pain, SOB, palpitations or lightheadedness. Advised to come back to the ED for worsening symptoms. Follow up with PCP within 1-2 days and Cardiology within 1 week of discharge. General: non toxic, no distress, appears at stated age Derm: warm, dry Head: atraumatic, normocephalic, symmetric Eyes: EOMI, no lid lag, anicteric sclera Mouth: no lip lesion, mucus membranes moist Cardiovascular: S1S2 reg, no murmur Lungs: CTA bilateral, no rhonchi, no rales , no accessory muscle use Ext: no gross muscle atrophy, no edema, no contractures Neuro: no focal neuro deficits Psych: Alert, oriented, appropriate affect Discharge Diagnosis: Chest pain, atypical CAD with stenting Hypertension Dyslipidemia BPH This complex discharge took 35 minutes to complete. 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 Last Myocardial Infarction Date:: Apr 2014 History of Any Multi-Drug Resistant Organisms: None Reported Past Surgical History: Heart Catheterization, Heart Catheterization With Stent Additional Past Surgical History / Comment(s): Right groin biopsy - done in [facility] ( [facility]), heart stent X5, colonoscopy X2. Past Anesthesia/Blood Transfusion Reactions: No Reported Reaction Additional Past Anesthesia/Blood Transfusion Reaction / Comment(s): No hx blood transfusion. Date of Last Stent Placement:: 09/28/17 Smoking Status: Former smoker - Past Family History Father Family Medical History: Cancer Additional Family Medical History / Comment(s): Throat cancer-1958. Medications and Allergies Home Medications Medication Instructions Recorded Confirmed Type Cholecalciferol [Vitamin D3 (25 1,000 unit PO HS 03/22/17 02/11/24 History Mcg = 1000 Iu)] Metoprolol Succinate (ER) [Toprol 25 mg PO HS 03/22/17 02/11/24 History XL] Tamsulosin HCl [Flomax] 0.4 mg PO HS 09/12/17 02/11/24 History Telmisartan [Micardis] 10 mg PO HS 09/12/17 02/11/24 History Isosorbide Mononitrate [Isosorbide 30 mg PO HS 09/28/17 02/11/24 History Mononitrate ER] Evolocumab [Repatha Syringe] 140 mg SQ Q30D 12/30/20 02/11/24 History Aspirin [Adult Low Dose Aspirin EC] 1 tab PO DAILY 12/18/23 02/11/24 History Allergies Allergy/AdvReac Type Severity Reaction Status Date / Time atorvastatin [From Lipitor] AdvReac joint Verified 02/11/24 08:11 swelling and pain Physical Exam Vitals: Vital Signs Temp Pulse Resp BP Pulse Ox 02/11/24 13:00 79 18 131/90 98 02/11/24 11:14 78 16 136/85 99 02/11/24 07:28 97.9 F 16 132/78 99 02/11/24 06:38 71 13 123/81 95 02/11/24 05:17 70 13 117/77 95 02/11/24 03:21 80 14 140/90 93 L 02/11/24 01:52 97.8 F 89 16 134/86 94 L Intake and Output 02/11/24 02/11/24 02/11/24 06:59 14:59 22:59 Intake Total 100.680 55.427 Balance 100.680 55.427 Intake: Intake, IV Titration 100.680 55.427 Amount Heparin Sod,Pork in 0.45% 100.680 55.427 NaCl 25,000 unit In 0.45 % NaCl 1 250ml.bag @ 9. 381 UNITS/KG/HR 10 mls/hr IV .Q24H [facility] Rx#: [id number] Other: Weight 106.594 kg Results CBC & Chem 7: 02/11/24 06:50 02/11/24 06:50 Labs: Abnormal Lab Results - Last 24 Hours (Table) 02/11/24 02/11/24 02/11/24 Range/Units 06:50 06:50 06:50 Lymphocytes # 0.9 L (1.0-4.8) k/uL APTT 31.7 H (22.0-30.0) sec Sodium 135 L (137-145) mmol/L Total Protein 6.2 L (6.3-8.2) g/dL Triglycerides (0.00-149.00) mg/dL Cholesterol (0.00-200.00) mg/dL VLDL Cholesterol, Calc (5.00-40.00) mg/dL 02/11/24 02/11/24 Range/Units 06:50 14:50 Lymphocytes # (1.0-4.8) k/uL APTT 50.3 H (22.0-30.0) sec Sodium (137-145) mmol/L Total Protein (6.3-8.2) g/dL Triglycerides 216.00 H (0.00-149.00) mg/dL Cholesterol 207.00 H (0.00-200.00) mg/dL VLDL Cholesterol, Calc 43.20 H (5.00-40.00) mg/dL
[2024-02-11 17:19] VITALS: BP 146/84; PULSE 77; RESP 16
[2024-02-11] MEDS ORDERED: METOPROLOL SUCCINATE (ER) 25 MG TAB.ER.24H PO SCH (21:00)
[2024-02-11] MEDS ORDERED: LOSARTAN 25 MG TAB PO SCH (21:00)
[2024-02-11] MEDS ORDERED: ISOSORBIDE MONONITRATE ER 30 MG TAB.ER.24H PO SCH (21:00)
[2024-02-11] MEDS ORDERED: TAMSULOSIN 0.4 MG CAP.ER.24H PO SCH (21:00)
[2024-02-12] MEDS ORDERED: ASPIRIN 81 MG PO SCH (09:00)
== END 2024-02-11 17:16 | disposition home or self-care (01) ==
LOC: EC 01:51 → 6NMEDSUR 01:54
PROVIDERS: ADMIT Internal Medicine; ATTEND Internal Medicine
DX: R07.89 Other chest pain (principal); I10 Essential (primary) hypertension; I25.10 Atherosclerotic heart disease of native coronary artery without angina pectoris; I25.2 Old myocardial infarction; E66.9 Obesity, unspecified; E78.5 Hyperlipidemia, unspecified; N40.0 Benign prostatic hyperplasia without lower urinary tract symptoms; G47.30 Sleep apnea, unspecified; Z79.82 Long term (current) use of aspirin; Z86.718 Personal history of other venous thrombosis and embolism; Z87.891 Personal history of nicotine dependence; Z95.5 Presence of coronary angioplasty implant and graft; Z79.899 Other long term (current) drug therapy; Z88.8 Allergy status to other drugs, medicaments and biological substances
CPT/HCPCS: 96365; 96366; 99291; 93351; 83880; 80061; 80053; 84443; 83735; 84484; 85025; 85730; 83036; 71045; G0378; J1644 ×2